=== PATIENT | male | born 1955 | race American Indian/Alaskan Native ===

== ENCOUNTER 2017-11-03 21:14 | Inpatient (IN) | payer OTHER ==
[2017-11-03 22:32] LABS: Basophils # (Auto) 0.1 K/mm3 (0.0-0.1); Basophils % (Auto) 1.4 % (0.0-1.8); Eosinophils # (Auto) 0.2 K/mm3 (0.0-0.4); Eosinophils % (Auto) 2.5 % (0.0-4.3); Hematocrit 41.8 % (35.5-45.6); Hemoglobin 14.1 gm/dl (11.8-15.2); Lymphocytes # (Auto) 3.9 K/mm3 (1.2-5.4); Lymphocytes % (Auto) 44.5 % (13.4-35.0); Mean Corpuscular HGB Conc 34 % (32-34); Mean Corpuscular Hemoglobin 31 pg (28-32); Mean Corpuscular Volume 92 fl (84-94); Monocytes # (Auto) 0.5 K/mm3 (0.0-0.8); Monocytes % (Auto) 5.4 % (0.0-7.3); Platelet Count 231 K/mm3 (140-440); Red Blood Count 4.53 M/mm3 (3.65-5.03); Red Cell Distribution Width 13.5 % (13.2-15.2)
[2017-11-03 22:39] LABS: INR 0.89 (0.87-1.13)
[2017-11-03 22:40] LABS: Partial Thromboplastin Time 29.2 Sec. (24.2-36.6)
[2017-11-03 22:56] LABS: Alanine Aminotransferase 10 units/L (7-56); Albumin 4.3 g/dL (3.9-5); BUN/Creatinine Ratio 14; Blood Urea Nitrogen 19 mg/dL (9-20); Calcium 9.6 mg/dL (8.4-10.2); Hemolysis Index 8
--- NOTE | 2017-11-03 23:42 | Emergency Department Report ---
HPI - General Chief Complaint: Extremity Problem,Nontraumatic Time Seen by Provider: 11/03/17 23:26 - HPI HPI: Room 6 The patient is a 62-year-old male presenting with a chief complaint of right lower extremity pain. The patient states she has a history of peripheral vascular disease and has had worsening pain in his right foot with weightbearing since January 2017. The patient states this pain is worsening since its onset and they spoke with the vascular surgeon (Dr. Busby) today and he instructed them to come to the emergency department to be admitted in preparation for surgery tomorrow. The patient gets his pain a score of 7/10. Location: Right foot Duration: Constantly worsening since January 2017 Quality: Pain Severity: 7/10 Modifying factors: [see above] Context: [see above] Mode of transportation: [not driving] ED Past Medical Hx - Past Medical History Previous Medical History?: Yes Hx Hypertension: Yes Hx CVA: Yes (01/2017) Additional medical history: Peripheral vascular disease - Surgical History Past Surgical History?: No Hx Cholecystectomy: Yes - Family History Family history: no significant - Social History Smoking Status: Current Every Day Smoker (1/2 pack per day) Substance Use Type: None (denies illicit drug use) ED Review of Systems ROS: Stated complaint: PAIN IN FOOT Other details as noted in HPI Constitutional: weakness Musculoskeletal: myalgia Physical Exam - Physical Exam Vital Signs: Vital Signs 11/03/17 21:32 Temperature 98.5 F Pulse Rate 73 Respiratory 16 Rate Blood Pressure 187/114 O2 Sat by Pulse 100 Oximetry Physical Exam: GENERAL: The patient is well-developed well-nourished male lying on stretcher not appearing to be in acute distress. [] HEENT: Normocephalic. Atraumatic. Extraocular motions are intact. Patient has moist mucous membranes. NECK: Supple. Trachea midline CHEST/LUNGS: There is no respiratory distress noted. HEART/CARDIOVASCULAR: Regular. There is no tachycardia. Faint dopplerable right DP ABDOMEN:There is no abdominal distention. SKIN: There is no rash. There is no diaphoresis. NEURO: The patient is awake, alert, and oriented. The patient is cooperative. The patient has normal speech MUSCULOSKELETAL: There is no evidence of acute injury. ED Course Vital Signs 11/03/17 21:32 Temperature 98.5 F Pulse Rate 73 Respiratory 16 Rate Blood Pressure 187/114 O2 Sat by Pulse 100 Oximetry - Consultations Consultation #1: 11/03/17 23:41 Vascular surgery paged 11/03/17 23:[address] Dobbins- may have hospitalist admit the patient. No need for heparin drip at this time. Will evaluate ED Medical Decision Making - Lab Data Result diagrams: 11/03/17 22:13 11/03/17 22:13 Laboratory Tests 11/03/17 11/03/17 11/03/17 22:13 22:13 22:13 WBC 8.9 RBC 4.53 Hgb 14.1 Hct 41.8 MCV 92 MCH 31 MCHC 34 RDW 13.5 Plt Count 231 Lymph % (Auto) 44.5 H [place] % (Auto) 5.4 Eos % (Auto) 2.5 Baso % (Auto) 1.4 Lymph # 3.9 [place] # 0.5 Eos # 0.2 Baso # 0.1 Seg Neutrophils % 46.2 Seg Neutrophils # 4.1 PT 12.5 INR 0.89 APTT 29.2 Sodium 136 L Potassium 4.3 Chloride 97.4 L Carbon Dioxide 29 Anion Gap 14 BUN 19 Creatinine 1.4 Estimated GFR > 60 BUN/Creatinine Ratio 14 Glucose 99 Calcium 9.6 Total Bilirubin 0.30 AST 14 ALT 10 Alkaline Phosphatase 76 NT-Pro-B Natriuret Pep 228.8 Total Protein 7.1 Albumin 4.3 Albumin/Globulin Ratio 1.5 - Differential Diagnosis peripheral vascular disease Critical care attestation.: If time is entered above; I have spent that time in minutes in the direct care of this critically ill patient, excluding procedure time. ED Disposition Clinical Impression: Right foot pain, Peripheral vascular disease Disposition: OP ADMIT IP TO THIS HOSP Is pt being admited?: Yes Does the pt Need Aspirin: Yes Condition: Fair Referrals: PRIMARY CARE, [Primary Care Provider] - 3-5 Days Time of Disposition: 23:58 (hospitalist notified (Dr. Farideh Holguin))
--- NOTE | 2017-11-03 23:58 | History and Physical Report ---
History of Present Illness Date of examination: 11/03/17 History of present illness: 62-year-old male with history of hypertension, CVA, peripheral vascular disease has ongoing right foot pain over the last 8 months. He described the pain as sharp, intermittent, less than 5 minutes, intensity score 10, no radiation, worse with activity, better with rest. He was seen by Dr. Busby who told him to come to the emergency room for admission for surgery in the morning Review of systems Constitutional: no weight loss, chills Ears, eyes, nose, mouth and throat: no nasal congestion, no nasal discharge, no sinus pressure, no vision change, no red eye. Neck: No neck pain or rigidity. Cardiovascular: no chest pain, palpitations Respiratory: No cough, shortness of breath Gastrointestinal: no abdominal pain, hematochezia Genitourinary : no dysuria, frequency , no hematuria Musculoskeletal: no joint swelling or muscle ache Integumentary: no rash, no pruritis Neurological: no parathesias, no numbness, no focal weakness Endocrine: no cold or heat intolerance, no polyuria or polydipsia Hematologic/Lymphatic: no easy bruising, no easy bleeding, no gland swelling Allergic/Immunologic: no urticaria, no angioedema. PAST MEDICAL HISTORY:hypertension, CVA, peripheral vascular disease PAST SURGICAL HISTORY: Cholecystectomy SOCIAL HISTORY: Smoke 8 cigarette/day, no alcohol or drugs FAMILY HISTORY:Hypertension Medications and Allergies Allergies Allergy/AdvReac Type Severity Reaction Status Date / Time No Known Allergies Allergy Unverified 01/25/16 09:21 Exam - Physical Exam Narrative exam: Gen. appearance: Patient lying in bed, no apparent distress HEENT: Normocephalic, atraumatic, pupils equally round and reactive to light, extraocular movement intact, and no sclericterus,. No JVD or thyromegaly or nodule,neck supple, no carotid bruit ,mucous membranes moist, no exudate or erythema Heart: S1, S2, regular rate and rhythm Lungs: Clear to auscultation bilaterally, breathing comfortable Abdomen: Positive bowel sounds, nontender, nondistended, no organomegaly Extremity: right foot is cooler than left, +doppler pulses, No edema, cyanosis, clubbing Skin: No rash, nodules, warm, dry Neuro: Oriented 3, cranial nerves II-12 intact, speech is fluent, motor and sensory intact - Constitutional Vitals: Temp Pulse Resp BP Pulse Ox 98.5 F 73 16 187/114 100 11/03/17 21:32 11/03/17 21:32 11/03/17 21:32 11/03/17 21:32 11/03/17 21:32 Results - Labs CBC & Chem 7: 11/03/17 22:13 11/03/17 22:13 Labs: Abnormal lab results 11/03/17 11/03/17 Range/Units 22:13 22:13 Lymph % (Auto) 44.5 H (13.4-35.0) % Sodium 136 L (137-145) mmol/L Chloride 97.4 L (98-107) mmol/L Assessment and Plan Assessment Peripheral vascular disease Hypertension History of CVA Plan Admit to medicine NPO, IV fluids, surgery in the morning Vascular consulted to see the patient IV hydralazine for blood pressure control DVT prophylaxis, IV morphine
[2017-11-04] MEDS ORDERED: TYLENOL #3 PO ONE (00:01)
[2017-11-04] MEDS ORDERED: ZOFRAN IV PRN (00:15)
[2017-11-04] MEDS ORDERED: SODIUM CHLORIDE FLUSH SYRINGE 10 ML IV PRN (00:15)
[2017-11-04] MEDS: APRESOLINE IV PRN ×2 (00:38→06:52)
[2017-11-04] MEDS: HABITROL TD SCH ×2 (00:39→10:40)
[2017-11-04] MEDS: NACL 0.45% 1000 ML 1,000 ML IV SCH (03:23)
[2017-11-04] MEDS: MORPHINE IV PRN (03:33)
[2017-11-04 06:00] LABS: Basophils # (Auto) 0.1 K/mm3 (0.0-0.1); Basophils % (Auto) 1.3 % (0.0-1.8); Eosinophils # (Auto) 0.2 K/mm3 (0.0-0.4); Eosinophils % (Auto) 2.6 % (0.0-4.3); Hematocrit 39.2 % (35.5-45.6); Hemoglobin 13.9 gm/dl (11.8-15.2); Lymphocytes # (Auto) 4.5 K/mm3 (1.2-5.4); Lymphocytes % (Auto) 48.4 % (13.4-35.0); Mean Corpuscular HGB Conc 36 % (32-34); Mean Corpuscular Hemoglobin 32 pg (28-32); Mean Corpuscular Volume 90 fl (84-94); Monocytes # (Auto) 0.5 K/mm3 (0.0-0.8); Monocytes % (Auto) 5.1 % (0.0-7.3); Platelet Count 201 K/mm3 (140-440); Red Blood Count 4.35 M/mm3 (3.65-5.03); Red Cell Distribution Width 13.4 % (13.2-15.2)
[2017-11-04 06:14] LABS: BUN/Creatinine Ratio 18; Blood Urea Nitrogen 20 mg/dL (9-20); Calcium 9.3 mg/dL (8.4-10.2); Hemolysis Index 1
--- NOTE | 2017-11-04 09:09 | Progress Note ---
Assessment and Plan Assessment and plan: 62-year-old male with history of hypertension, CVA, peripheral vascular disease has ongoing right foot pain over the last 8 months. He described the pain as sharp, intermittent, less than 5 minutes, intensity score 10, no radiation, worse with activity, better with rest. He was seen by Dr. Busby who told him to come to the emergency room for admission for surgery Peripheral vascular disease Vascular following -Doppler duplex ordered, based on the findings Dr. Busby will determine what the next step and interventional will be which may include arteriogram with revascularization Hypertension Continue at-home antihypertensives,IV hydralazine PRN History of CVA Continue statin therapy DVT prophylaxis Lovenox History Interval history: patient seen and examined. Continues to complain of right foot pain. He also complains of headache, which started this morning 4-5 out of 10 and is currently subsiding. He denies chest pain, nausea vomiting, shortness of breath. Labs, chart notes and nursing notes reviewed. Hospitalist Physical - Physical exam Narrative exam: General appearance: Present: no acute distress, well-nourished - EENT Eyes: Present: PERRL, EOM intact ENT: hearing intact, clear oral mucosa - Neck Present: supple, normal ROM - Respiratory Respiratory effort: normal Respiratory: bilateral: CTA - Cardiovascular Rhythm: regular Heart Sounds: Present: S1 & S2. Absent: Rub, click - Extremities Extremities: right foot is cooler than left-very tender to palpation, +doppler pulses, No edema - Abdominal General gastrointestinal: soft, non-tender, non-distended, normal bowel sounds - Integumentary Integumentary: Present: clear, warm, dry - Psychiatric Psychiatric: appropriate mood/affect, intact judgment & insight, cooperative - Neurologic Neurologic: CNII-XII intact, moves all extremities - Constitutional Vitals: Temp Pulse Resp BP Pulse Ox 99.0 F 91 H 18 180/103 99 11/04/17 01:36 11/04/17 06:52 11/04/17 01:36 11/04/17 06:52 11/04/17 01:36 Results - Labs CBC & Chem 7: 11/04/17 05:32 11/04/17 05:32 Labs: Laboratory Last Values WBC 9.3 K/mm3 (4.5-11.0) 11/04/17 05:32 RBC 4.35 M/mm3 (3.65-5.03) 11/04/17 05:32 Hgb 13.9 gm/dl (11.8-15.2) 11/04/17 05:32 Hct 39.2 % (35.5-45.6) 11/04/17 05:32 MCV 90 fl (84-94) 11/04/17 05:32 MCH 32 pg (28-32) 11/04/17 05:32 MCHC 36 % (32-34) H 11/04/17 05:32 RDW 13.4 % (13.2-15.2) 11/04/17 05:32 Plt Count 201 K/mm3 (140-440) 11/04/17 05:32 Lymph % (Auto) 48.4 % (13.4-35.0) H 11/04/17 05:32 [place] % (Auto) 5.1 % (0.0-7.3) 11/04/17 05:32 Eos % (Auto) 2.6 % (0.0-4.3) 11/04/17 05:32 Baso % (Auto) 1.3 % (0.0-1.8) 11/04/17 05:32 Lymph # 4.5 K/mm3 (1.2-5.4) 11/04/17 05:32 [place] # 0.5 K/mm3 (0.0-0.8) 11/04/17 05:32 Eos # 0.2 K/mm3 (0.0-0.4) 11/04/17 05:32 Baso # 0.1 K/mm3 (0.0-0.1) 11/04/17 05:32 Seg Neutrophils % 42.6 % (40.0-70.0) 11/04/17 05:32 Seg Neutrophils # 4.0 K/mm3 (1.8-7.7) 11/04/17 05:32 PT 12.5 Sec. (12.2-14.9) 11/03/17 22:13 INR 0.89 (0.87-1.13) 11/03/17 22:13 APTT 29.2 Sec. (24.2-36.6) 11/03/17 22:13 Sodium 138 mmol/L (137-145) 11/04/17 05:32 Potassium 3.6 mmol/L (3.6-5.0) 11/04/17 05:32 Chloride 100.9 mmol/L (98-107) 11/04/17 05:32 Carbon Dioxide 27 mmol/L (22-30) 11/04/17 05:32 Anion Gap 14 mmol/L 11/04/17 05:32 BUN 20 mg/dL (9-20) 11/04/17 05:32 Creatinine 1.1 mg/dL (0.8-1.5) 11/04/17 05:32 Estimated GFR > 60 ml/min 11/04/17 05:32 BUN/Creatinine Ratio 18 % 11/04/17 05:32 Glucose 93 mg/dL (75-100) 11/04/17 05:32 Calcium 9.3 mg/dL (8.4-10.2) 11/04/17 05:32 Total Bilirubin 0.30 mg/dL (0.1-1.2) 11/03/17 22:13 AST 14 units/L (5-40) 11/03/17 22:13 ALT 10 units/L (7-56) 11/03/17 22:13 Alkaline Phosphatase 76 units/L (35-129) 11/03/17 22:13 NT-Pro-B Natriuret Pep 228.8 pg/mL (0-900) 11/03/17 22:13 Total Protein 7.1 g/dL (6.3-8.2) 11/03/17 22:13 Albumin 4.3 g/dL (3.9-5) 11/03/17 22:13 Albumin/Globulin Ratio 1.5 % 11/03/17 22:13
--- NOTE | 2017-11-04 09:21 | Consultation ---
History of Present Illness - Reason for Consult Consult date: 11/04/17 Right Foot Pain Requesting physician: QUYNH VARELA - History of Present Illness The patient is a 62-year-old male with a history of CVA in January 2017 and tobacco abuse who states that he began right foot pain after his stroke in 2016. He states before that he was able to ambulate without any difficulty and denied any foot pain prior to that. He also denies any history of claudication prior to that time. Since that time his foot pain has progressively worsened and over the last several months he has progressed to rest pain requiring him to hang his right leg over the bed to relieve his pain. She has presented to several emergency departments over the last couple of days and presented there yesterday for potential intervention. On evaluation this morning he complains of right foot pain that is marginally relieved with hanging his leg over the bed. He states that his pain is approximately 7 out of 10. He has no other complaints at this time. Past History Past Medical History: hypertension, hyperlipidemia, stroke Past Surgical History: cholecystectomy, Other (orthopedic operation involving his first and second toes on the right foot) Social history: , smoking (7 cigarettes per day) Family history: no significant family history Medications and Allergies Allergies Allergy/AdvReac Type Severity Reaction Status Date / Time No Known Allergies Allergy Unverified 01/25/16 09:21 Home Medications Medication Instructions Recorded Confirmed Last Taken Type Amlodipine Besylate [Norvasc] 10 mg PO DAILY 11/04/17 11/04/17 Unknown History Aspirin [Aspirin TAB] 325 mg PO QDAY 11/04/17 11/04/17 Unknown History AtorvaSTATin [Lipitor] 40 mg PO QHS 11/04/17 11/04/17 Unknown History Hydrochlorothiazide [HCTZ] 25 mg PO QDAY 11/04/17 11/04/17 Unknown History hydrALAZINE [Apresoline] 50 mg PO TID 11/04/17 11/04/17 Unknown History Active Meds: Active Medications Acetaminophen (Tylenol) 650 mg PO Q4H PRN PRN Reason: Pain MILD(1-3)/Fever >100.5/COLES Amlodipine Besylate (Norvasc) 10 mg PO DAILY JUMA Atorvastatin Calcium (Lipitor) 40 mg PO QHS JUMA Enoxaparin Sodium (Lovenox) 40 mg SUB-Q QDAY JUMA Hydralazine HCl (Apresoline) 5 mg IV Q6H PRN PRN Reason: Hypertension Last Admin: 11/04/17 06:52 Dose: 5 mg Hydralazine HCl (Apresoline) 50 mg PO TID JUMA Hydrochlorothiazide (Hctz) 25 mg PO QDAY [facility] Sodium Chloride (Nacl 0.45% 1000 Ml) 1,000 mls @ 42 mls/hr IV DIRECT JUMA Last Admin: 11/04/17 03:23 Dose: 42 mls/hr Morphine Sulfate (Morphine) 2 mg IV Q4H PRN PRN Reason: Pain, Moderate (4-6) Last Admin: 11/04/17 03:33 Dose: 2 mg Nicotine (Habitrol) 14 mg TD Q24HR JUMA Last Admin: 11/04/17 00:39 Dose: 14 mg Ondansetron HCl (Zofran) 4 mg IV Q4H PRN PRN Reason: Nausea And Vomiting Sodium Chloride (Sodium Chloride Flush Syringe 10 Ml) 10 ml IV BID JUMA Sodium Chloride (Sodium Chloride Flush Syringe 10 Ml) 10 ml IV PRN PRN PRN Reason: LINE FLUSH Review of Systems All systems: negative Exam - Constitutional Vitals: Temp Pulse Resp BP Pulse Ox 98.4 F 71 22 155/102 98 11/04/17 08:26 11/04/17 08:26 11/04/17 08:26 11/04/17 08:26 11/04/17 08:26 General appearance: Present: no acute distress - EENT ENT: hearing intact - Neck Neck: Present: supple - Respiratory Respiratory effort: normal - Cardiovascular Rhythm: regular - Extremities Extremities: pulses intact (palpable femoral and popliteal pulses bilaterally unable to palpate pedal pulses bilaterally), No edema, normal temperature Extremity abnormal: ulceration (ulceration to the plantar surface of the first toe without exposed bone or purulence) - Abdominal General gastrointestinal: Present: soft, non-tender, other (protuberant unable to palpate aortic pulse or palpable pulsatile mass) Male genitourinary: Present: deferred - Rectal Rectal Exam: deferred Results - Labs CBC & Chem 7: 11/04/17 05:32 11/04/17 05:32 Labs: Abnormal lab results 11/03/17 11/03/17 11/04/17 Range/Units 22:13 22:13 05:32 MCHC 36 H (32-34) % Lymph % (Auto) 44.5 H 48.4 H (13.4-35.0) % Sodium 136 L (137-145) mmol/L Chloride 97.4 L (98-107) mmol/L Assessment and Plan The patient is a 62-year-old male with a history of CVA and tobacco abuse who has progressively worsening right lower extremity rest pain without a previous history of claudication. He has easily palpable popliteal pulses without palpable pedal pulses. 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 I am ordering a arterial duplex to evaluate for possible pedal vessel occlusive disease secondary to embolism and [place] artery aneurysm. Depending on the findings on the duplex this will determine what the next step and intervention will be which may include an arteriogram with revascularization. I discussed this plan with the patient and his . They have expressed understanding and agreed to plan. We'll keep him nothing by mouth at this time.
[2017-11-04] MEDS: NORVASC PO SCH (10:38)
[2017-11-04] MEDS: HCTZ PO SCH (10:39)
[2017-11-04] MEDS: TYLENOL PO PRN (11:21)
[2017-11-04] MEDS: LOVENOX SUB-Q SCH (11:21)
[2017-11-04] MEDS: SODIUM CHLORIDE FLUSH SYRINGE 10 ML IV SCH ×2 (11:22→22:02)
[2017-11-04] MEDS ORDERED: NARCAN 0.4 MG/1 ML IV PRN (20:30)
[2017-11-04] MEDS: DILAUDID PCA 6MG/30ML IV SCH (21:35)
[2017-11-04] MEDS: APRESOLINE PO SCH (22:02)
[2017-11-05] MEDS: APRESOLINE PO SCH ×5 (08:00→22:19)
[2017-11-05 08:08] LABS: Partial Thromboplastin Time 32.4 Sec. (24.2-36.6)
[2017-11-05] MEDS: LOVENOX SUB-Q SCH (10:16)
[2017-11-05] MEDS: HABITROL TD SCH (10:16)
[2017-11-05] MEDS: PLAVIX PO SCH (10:17)
[2017-11-05] MEDS: BABY ASPIRIN PO SCH (10:18)
[2017-11-05] MEDS: HCTZ PO SCH (10:18)
[2017-11-05] MEDS: NORVASC PO SCH (10:18)
[2017-11-05] MEDS: SODIUM CHLORIDE FLUSH SYRINGE 10 ML IV SCH ×2 (10:20→22:20)
[2017-11-05] MEDS: APRESOLINE IV PRN (12:26)
--- NOTE | 2017-11-05 14:10 | Progress Note ---
Assessment and Plan Assessment and plan: 62-year-old male with history of hypertension, CVA, peripheral vascular disease has ongoing right foot pain over the last 8 months. He described the pain as sharp, intermittent, less than 5 minutes, intensity score 10, no radiation, worse with activity, better with rest. He was seen by Dr. Busby who told him to come to the emergency room for admission for surgery Peripheral vascular disease Vascular following -Doppler duplex ordered, based on the findings Dr. Busby will determine what the next step and interventional will be which may include arteriogram with revascularization Hypertension Continue at-home antihypertensives,IV hydralazine PRN History of CVA Continue statin therapy DVT prophylaxis Lovenox History Interval history: Patient was seen and evaluated this morning, patient denied headache, Patient asked to eat. Hospitalist Physical - Physical exam Narrative exam: Not in cardiopulmonary distress. The patient appeared well nourished and normally developed. Vital signs as documented. Head exam is unremarkable. No scleral icterus . Neck is without jugular venous distension, thyromegaly, or carotid bruits. Lungs are clear to auscultation. Cardiac exam reveals regular rate and Rhythm. Abdominal exam reveals normal bowel sounds. Extremities are nonedematous. RECEPTIONIST CLERK: Alert and oriented 3. No focal weakness. - Constitutional Vitals: Temp Pulse Resp BP Pulse Ox 98.4 F 68 20 199/98 97 11/05/17 12:15 11/05/17 12:26 11/05/17 12:15 11/05/17 12:26 11/05/17 12:15 General appearance: Present: no acute distress Results - Labs CBC & Chem 7: 11/04/17 05:32 11/04/17 05:32 Labs: Laboratory Last Values WBC 9.3 K/mm3 (4.5-11.0) 11/04/17 05:32 RBC 4.35 M/mm3 (3.65-5.03) 11/04/17 05:32 Hgb 13.9 gm/dl (11.8-15.2) 11/04/17 05:32 Hct 39.2 % (35.5-45.6) 11/04/17 05:32 MCV 90 fl (84-94) 11/04/17 05:32 MCH 32 pg (28-32) 11/04/17 05:32 MCHC 36 % (32-34) H 11/04/17 05:32 RDW 13.4 % (13.2-15.2) 11/04/17 05:32 Plt Count 201 K/mm3 (140-440) 11/04/17 05:32 Lymph % (Auto) 48.4 % (13.4-35.0) H 11/04/17 05:32 [place] % (Auto) 5.1 % (0.0-7.3) 11/04/17 05:32 Eos % (Auto) 2.6 % (0.0-4.3) 11/04/17 05:32 Baso % (Auto) 1.3 % (0.0-1.8) 11/04/17 05:32 Lymph # 4.5 K/mm3 (1.2-5.4) 11/04/17 05:32 [place] # 0.5 K/mm3 (0.0-0.8) 11/04/17 05:32 Eos # 0.2 K/mm3 (0.0-0.4) 11/04/17 05:32 Baso # 0.1 K/mm3 (0.0-0.1) 11/04/17 05:32 Seg Neutrophils % 42.6 % (40.0-70.0) 11/04/17 05:32 Seg Neutrophils # 4.0 K/mm3 (1.8-7.7) 11/04/17 05:32 PT 13.7 Sec. (12.2-14.9) 11/05/17 06:18 INR 1.00 (0.87-1.13) 11/05/17 06:18 APTT 32.4 Sec. (24.2-36.6) 11/05/17 06:18 Sodium 138 mmol/L (137-145) 11/04/17 05:32 Potassium 3.6 mmol/L (3.6-5.0) 11/04/17 05:32 Chloride 100.9 mmol/L (98-107) 11/04/17 05:32 Carbon Dioxide 27 mmol/L (22-30) 11/04/17 05:32 Anion Gap 14 mmol/L 11/04/17 05:32 BUN 20 mg/dL (9-20) 11/04/17 05:32 Creatinine 1.1 mg/dL (0.8-1.5) 11/04/17 05:32 Estimated GFR > 60 ml/min 11/04/17 05:32 BUN/Creatinine Ratio 18 % 11/04/17 05:32 Glucose 93 mg/dL (75-100) 11/04/17 05:32 Calcium 9.3 mg/dL (8.4-10.2) 11/04/17 05:32 Total Bilirubin 0.30 mg/dL (0.1-1.2) 11/03/17 22:13 AST 14 units/L (5-40) 11/03/17 22:13 ALT 10 units/L (7-56) 11/03/17 22:13 Alkaline Phosphatase 76 units/L (35-129) 11/03/17 22:13 NT-Pro-B Natriuret Pep 228.8 pg/mL (0-900) 11/03/17 22:13 Total Protein 7.1 g/dL (6.3-8.2) 11/03/17 22:13 Albumin 4.3 g/dL (3.9-5) 11/03/17 22:13 Albumin/Globulin Ratio 1.5 % 11/03/17 22:13
--- NOTE | 2017-11-05 14:34 | Progress Note ---
Assessment and Plan 62-year-old male with multiple issues including right-sided stroke with paresis , bunions of his toes, and right lower extremity neuropathy who presents with worsening right lower extremity pain over the last year after his right sided stroke, but 2 weeks ago developed severe pain that was only relieved by hanging his foot off the bed. Multifactorial causes of pain including orthopedic causes (severe bunion deformity), and neuropathy of the right lower extremity after his stroke, and peripheral vascular disease. Given the pain relief with pain in the foot off the bed, this suggests his more severe pain may be secondary to arterial disease. Recommend endovascular intervention of the right lower extremity for both diagnostic and therapeutic purposes. Set patient up for Tuesday. Subjective Date of service: 11/05/17 Principal diagnosis: Rest pain RLE Interval history: Patient describes rest pain of the right lower extremity for 2 weeks with pain relief when pain the foot off the bed. Also has neuropathy and orthopedic pain. Objective - Constitutional Vitals: Vital Signs - 12hr 11/05/17 11/05/17 11/05/17 03:35 05:35 08:03 Temperature 98.7 F Pulse Rate 58 L Respiratory 20 24 22 Rate Blood Pressure 174/96 O2 Sat by Pulse 89 Oximetry 11/05/17 11/05/17 11/05/17 08:04 10:18 12:14 Temperature 98.7 F 98.4 F Pulse Rate 59 L 64 70 Respiratory 22 20 Rate Blood Pressure 168/80 190/99 O2 Sat by Pulse 96 97 Oximetry 11/05/17 11/05/17 12:15 12:26 Temperature 98.4 F Pulse Rate 68 68 Respiratory 20 Rate Blood Pressure 199/98 O2 Sat by Pulse 97 Oximetry General appearance: Present: mild distress (right lower extremity pain) - EENT Eyes: EOM intact ENT: hearing intact - Respiratory Respiratory effort: normal Extremities: normal temperature, normal color Extremity abnormal: pulses diminished (nonpalpable pedal pulses) - Gastrointestinal General gastrointestinal: Present: soft - Psychiatric Psychiatric: appropriate mood/affect, cooperative - Labs CBC & Chem 7: 11/04/17 05:32 11/04/17 05:32
[2017-11-05] MEDS: NACL 0.45% 1000 ML 1,000 ML IV SCH (20:40)
[2017-11-06] MEDS: APRESOLINE PO SCH ×2 (08:40→13:46)
[2017-11-06] MEDS: BABY ASPIRIN PO SCH (10:36)
[2017-11-06] MEDS: HABITROL TD SCH (10:36)
[2017-11-06] MEDS: NORVASC PO SCH (10:36)
[2017-11-06] MEDS: PLAVIX PO SCH (10:36)
[2017-11-06] MEDS: LOVENOX SUB-Q SCH (10:36)
[2017-11-06] MEDS: HCTZ PO SCH (10:37)
[2017-11-06] MEDS: SODIUM CHLORIDE FLUSH SYRINGE 10 ML IV SCH (10:37)
--- NOTE | 2017-11-06 11:01 | Progress Note ---
Assessment and Plan Assessment and plan: 62-year-old male with history of hypertension, CVA, peripheral vascular disease has ongoing right foot pain over the last 8 months. He described the pain as sharp, intermittent, less than 5 minutes, intensity score 10, no radiation, worse with activity, better with rest. He was seen by Dr. Busby who told him to come to the emergency room for admission for surgery Peripheral vascular disease - BLE ARTERIAL DUPLEX/ LUKE'S COMPLETED. VAS LAB PRELIMINARY REPORT; RESTING LUKE' S: RT= 0.65, LT= 0.65. - Will have vascular intervention tomorrow Hypertension - continue home BP medications History of CVA - Continue statin therapy DVT prophylaxis - Lovenox History Interval history: Patient was seen and evaluated this morning, patient denied headache, still complains pain on the right foot worse on the 2nd toes. Hospitalist Physical - Physical exam Narrative exam: Not in cardiopulmonary distress. The patient appeared well nourished and normally developed. Vital signs as documented. Head exam is unremarkable. No scleral icterus . Neck is without jugular venous distension, thyromegaly, or carotid bruits. Lungs are clear to auscultation. Cardiac exam reveals regular rate and Rhythm. Abdominal exam reveals normal bowel sounds. Extremities are nonedematous, tenderness on the right foot, worse on the second toes. 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 - Constitutional Vitals: Temp Pulse Resp BP Pulse Ox 98.5 F 68 20 160/90 99 11/06/17 08:05 11/06/17 10:36 11/06/17 08:05 11/06/17 10:36 11/06/17 08:05 General appearance: Present: mild distress (right lower extremity pain) Results - Labs CBC & Chem 7: 11/04/17 05:32 11/04/17 05:32 Labs: Laboratory Last Values WBC 9.3 K/mm3 (4.5-11.0) 11/04/17 05:32 RBC 4.35 M/mm3 (3.65-5.03) 11/04/17 05:32 Hgb 13.9 gm/dl (11.8-15.2) 11/04/17 05:32 Hct 39.2 % (35.5-45.6) 11/04/17 05:32 MCV 90 fl (84-94) 11/04/17 05:32 MCH 32 pg (28-32) 11/04/17 05:32 MCHC 36 % (32-34) H 11/04/17 05:32 RDW 13.4 % (13.2-15.2) 11/04/17 05:32 Plt Count 201 K/mm3 (140-440) 11/04/17 05:32 Lymph % (Auto) 48.4 % (13.4-35.0) H 11/04/17 05:32 [place] % (Auto) 5.1 % (0.0-7.3) 11/04/17 05:32 Eos % (Auto) 2.6 % (0.0-4.3) 11/04/17 05:32 Baso % (Auto) 1.3 % (0.0-1.8) 11/04/17 05:32 Lymph # 4.5 K/mm3 (1.2-5.4) 11/04/17 05:32 [place] # 0.5 K/mm3 (0.0-0.8) 11/04/17 05:32 Eos # 0.2 K/mm3 (0.0-0.4) 11/04/17 05:32 Baso # 0.1 K/mm3 (0.0-0.1) 11/04/17 05:32 Seg Neutrophils % 42.6 % (40.0-70.0) 11/04/17 05:32 Seg Neutrophils # 4.0 K/mm3 (1.8-7.7) 11/04/17 05:32 PT 13.7 Sec. (12.2-14.9) 11/05/17 06:18 INR 1.00 (0.87-1.13) 11/05/17 06:18 APTT 32.4 Sec. (24.2-36.6) 11/05/17 06:18 Sodium 138 mmol/L (137-145) 11/04/17 05:32 Potassium 3.6 mmol/L (3.6-5.0) 11/04/17 05:32 Chloride 100.9 mmol/L (98-107) 11/04/17 05:32 Carbon Dioxide 27 mmol/L (22-30) 11/04/17 05:32 Anion Gap 14 mmol/L 11/04/17 05:32 BUN 20 mg/dL (9-20) 11/04/17 05:32 Creatinine 1.1 mg/dL (0.8-1.5) 11/04/17 05:32 Estimated GFR > 60 ml/min 11/04/17 05:32 BUN/Creatinine Ratio 18 % 11/04/17 05:32 Glucose 93 mg/dL (75-100) 11/04/17 05:32 Calcium 9.3 mg/dL (8.4-10.2) 11/04/17 05:32 Total Bilirubin 0.30 mg/dL (0.1-1.2) 11/03/17 22:13 AST 14 units/L (5-40) 11/03/17 22:13 ALT 10 units/L (7-56) 11/03/17 22:13 Alkaline Phosphatase 76 units/L (35-129) 11/03/17 22:13 NT-Pro-B Natriuret Pep 228.8 pg/mL (0-900) 11/03/17 22:13 Total Protein 7.1 g/dL (6.3-8.2) 11/03/17 22:13 Albumin 4.3 g/dL (3.9-5) 11/03/17 22:13 Albumin/Globulin Ratio 1.5 % 11/03/17 22:13
[2017-11-06] MEDS ORDERED: BENADRYL PO PRN (13:16)
[2017-11-06] MEDS: DILAUDID PCA 6MG/30ML IV SCH (13:25)
[2017-11-07] MEDS: APRESOLINE PO SCH ×3 (01:11→18:01)
[2017-11-07 07:23] LABS: BUN/Creatinine Ratio 15; Blood Urea Nitrogen 20 mg/dL (9-20); Calcium 9.1 mg/dL (8.4-10.2); Hemolysis Index 1
[2017-11-07] MEDS: SODIUM CHLORIDE FLUSH SYRINGE 10 ML IV SCH (10:22)
[2017-11-07] MEDS: HABITROL TD SCH (10:25)
[2017-11-07] MEDS ORDERED: HEPARIN/NS 5000 UNIT/500ML(CATH LAB) 1,000 ML IR ONE (13:53)
[2017-11-07] MEDS ORDERED: ANCEF/STERILE WATER 2 GM/20 ML 2 GM/20 ML SYRINGE IV ONE (13:54)
--- NOTE | 2017-11-07 14:25 | Cat Scan Report ---
FINAL REPORT EXAM: CT ANGIO ABD/FEMORAL ABD AORTA HISTORY: PVD with rest pain TECHNIQUE: CT angiogram with intravenous contrast abdomen through lower extremities. Multiplanar and 3D maximum intensity projection reconstructions were obtained PRIORS: None. FINDINGS: There is minimal calcified atherosclerotic abdominal aorta. No evidence for significant stenosis. Celiac and SMA are patent. The renal arteries are normal in caliber. Common iliac arteries demonstrate minimal plaque without evidence for significant stenosis. Common iliac arteries are patent bilaterally no significant stenosis. Is the common femoral and deep femoral arteries are unremarkable. There is bilateral luminal narrowing distal superficial femoral arteries with short segment of stenosis on the right estimated 60 70 percent and approximately 50 percent stenosis on the left. Popliteal arteries demonstrate normal caliber. The proximal arteries of the calf are patent there is some runoff seen distally however visualization of detail the arteries of the calf in feet is limited. No acute findings seen within the abdomen or pelvis IMPRESSION: Minimal plaque formation with otherwise normal appearance from the abdominal aorta through the distal superficial femoral arteries. There is some narrowing of the superficial femoral arteries distally bilaterally. Limited visualization below the knee no gross abnormality identified
[2017-11-07] MEDS ORDERED: NACL 0.9% 500 ML 500 ML ONE (14:26)
[2017-11-07] MEDS: VERSED ONE ×3 (14:51→15:34)
[2017-11-07] MEDS: SUBLIMAZE ONE ×7 (14:51→16:24)
[2017-11-07] MEDS: XYLOCAINE 2% INFILTRATI ONE ×2 (14:51→14:59)
[2017-11-07] MEDS ORDERED: CATHFLO ONE (15:06)
[2017-11-07] MEDS: APRESOLINE ONE ×2 (15:12→15:23)
--- NOTE | 2017-11-07 15:12 | Progress Note ---
Assessment and Plan Assessment and plan: 62-year-old male with history of hypertension, CVA, peripheral vascular disease has ongoing right foot pain over the last 8 months. He described the pain as sharp, intermittent, less than 5 minutes, intensity score 10, no radiation, worse with activity, better with rest. He was seen by Dr. Busby who told him to come to the emergency room for admission for surgery Peripheral vascular disease - BLE ARTERIAL DUPLEX/ LUKE'S COMPLETED. VAS LAB PRELIMINARY REPORT; RESTING LUKE' S: RT= 0.65, LT= 0.65. - Will have vascular intervention tomorrow Hypertension - continue home BP medications History of CVA - Continue statin therapy DVT prophylaxis - Lovenox History Interval history: Patient was seen and evaluated this morning, patient denied headache, still complains pain on the right foot worse on the 2nd toes. Hospitalist Physical - Physical exam Narrative exam: Not in cardiopulmonary distress. The patient appeared well nourished and normally developed. Vital signs as documented. Head exam is unremarkable. No scleral icterus . Neck is without jugular venous distension, thyromegaly, or carotid bruits. Lungs are clear to auscultation. Cardiac exam reveals regular rate and Rhythm. Abdominal exam reveals normal bowel sounds. Extremities are nonedematous, tenderness on the right foot, worse on the second toes. 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 - Constitutional Vitals: Temp Pulse Resp BP Pulse Ox 98.4 F 74 19 159/104 96 11/07/17 07:46 11/07/17 10:22 11/07/17 12:00 11/07/17 10:22 11/07/17 07:46 General appearance: Present: mild distress (right lower extremity pain) Results - Labs CBC & Chem 7: 11/04/17 05:32 11/07/17 06:25 Labs: Laboratory Last Values WBC 9.3 K/mm3 (4.5-11.0) 11/04/17 05:32 RBC 4.35 M/mm3 (3.65-5.03) 11/04/17 05:32 Hgb 13.9 gm/dl (11.8-15.2) 11/04/17 05:32 Hct 39.2 % (35.5-45.6) 11/04/17 05:32 MCV 90 fl (84-94) 11/04/17 05:32 MCH 32 pg (28-32) 11/04/17 05:32 MCHC 36 % (32-34) H 11/04/17 05:32 RDW 13.4 % (13.2-15.2) 11/04/17 05:32 Plt Count 201 K/mm3 (140-440) 11/04/17 05:32 Lymph % (Auto) 48.4 % (13.4-35.0) H 11/04/17 05:32 [place] % (Auto) 5.1 % (0.0-7.3) 11/04/17 05:32 Eos % (Auto) 2.6 % (0.0-4.3) 11/04/17 05:32 Baso % (Auto) 1.3 % (0.0-1.8) 11/04/17 05:32 Lymph # 4.5 K/mm3 (1.2-5.4) 11/04/17 05:32 [place] # 0.5 K/mm3 (0.0-0.8) 11/04/17 05:32 Eos # 0.2 K/mm3 (0.0-0.4) 11/04/17 05:32 Baso # 0.1 K/mm3 (0.0-0.1) 11/04/17 05:32 Seg Neutrophils % 42.6 % (40.0-70.0) 11/04/17 05:32 Seg Neutrophils # 4.0 K/mm3 (1.8-7.7) 11/04/17 05:32 PT 13.7 Sec. (12.2-14.9) 11/05/17 06:18 INR 1.00 (0.87-1.13) 11/05/17 06:18 APTT 32.4 Sec. (24.2-36.6) 11/05/17 06:18 Sodium 137 mmol/L (137-145) 11/07/17 06:25 Potassium 3.9 mmol/L (3.6-5.0) 11/07/17 06:25 Chloride 96.6 mmol/L (98-107) L 11/07/17 06:25 Carbon Dioxide 28 mmol/L (22-30) 11/07/17 06:25 Anion Gap 16 mmol/L 11/07/17 06:25 BUN 20 mg/dL (9-20) 11/07/17 06:25 Creatinine 1.3 mg/dL (0.8-1.5) 11/07/17 06:25 Estimated GFR > 60 ml/min 11/07/17 06:25 BUN/Creatinine Ratio 15 % 11/07/17 06:25 Glucose 93 mg/dL (75-100) 11/07/17 06:25 Calcium 9.1 mg/dL (8.4-10.2) 11/07/17 06:25 Total Bilirubin 0.30 mg/dL (0.1-1.2) 11/03/17 22:13 AST 14 units/L (5-40) 11/03/17 22:13 ALT 10 units/L (7-56) 11/03/17 22:13 Alkaline Phosphatase 76 units/L (35-129) 11/03/17 22:13 NT-Pro-B Natriuret Pep 228.8 pg/mL (0-900) 11/03/17 22:13 Total Protein 7.1 g/dL (6.3-8.2) 11/03/17 22:13 Albumin 4.3 g/dL (3.9-5) 11/03/17 22:13 Albumin/Globulin Ratio 1.5 % 11/03/17 22:13
[2017-11-07] MEDS: HEPARIN 10,000 UNITS/10 ML ONE ×2 (15:20→16:01)
[2017-11-07] MEDS ORDERED: VERSED ONE (15:32)
--- NOTE | 2017-11-07 16:44 | Post Operative Note ---
Date of procedure: 11/07/17 Pre-op diagnosis: PVD with Right Lower Extremity Rest Pain Post-op diagnosis: same Procedure: 1. Ultrasound Guided Access Left Common Femoral Artery 2. Diagnostic Aortogram with Right Lower Extremity Runoff (No Previous Films for Comparison) 3. Angioplasty of Right Posterior Tibial Artery with 3.0 x 220 Gabriel Balloon 4. Angioplasty of Right Anterior Tibial Artery with 3.0 x 220 Gabriel Balloon 5. Angiolplasty of Right Below Knee Popliteal Artery with 4.0 x 80 INpact Drug- Coated Balloon 6. Angioplasty and Stent of Right SFA with 5.0 x 150 INpact Drug-Coated Balloon and 6 x 40 EverFlex Stent 7. Closure of Left Femoral Arteriotomy with 6 Uzbek Angioseal 8. Radiologic Supervision with Interpretation Anesthesia: local, other (I.V. Sedation) Surgeon: CASPER BROOKS Estimated blood loss: minimal Pathology: none Condition: stable Disposition: floor
--- NOTE | 2017-11-07 16:47 | Operative Report ---
Operative Report Operative Report: Date of Procedure: 11/07/2017 Pre-operative Diagnosis: PVD with Right Lower Extremity Rest Pain Post-operative Diagnosis: Same Procedure(s): 1. Ultrasound Guided Access Left Common Femoral Artery 2. Diagnostic Aortogram with Right Lower Extremity Runoff (No Previous Films for Comparison) 3. Angioplasty of Right Posterior Tibial Artery with 3.0 x 220 Gabriel Balloon 4. Angioplasty of Right Anterior Tibial Artery with 3.0 x 220 Gabriel Balloon 5. Angiolplasty of Right Below Knee Popliteal Artery with 4.0 x 80 INpact Drug- Coated Balloon 6. Angioplasty and Stent of Right SFA with 5.0 x 150 INpact Drug-Coated Balloon and 6 x 40 EverFlex Stent 7. Closure of Left Femoral Arteriotomy with 6 Ivorian Angioseal 8. Radiologic Supervision with Interpretation Surgeon: Oren Busby M.D. Rubber Vulcanizing Machine Operator: Tylor Anesthesia: Local and IV sedation EBL: Minimal Counts: Correct Complications: None Condition: Stable Specimen: None Indication: The patient is a 62-year-old male with a history of CVA and neuropathy who presented to the emergency department with complaints of neuropathic pain in his bilateral lower extremities for approximately a year however over the past several months he began complaining of pain in his right foot that progressed to rest pain and worsened over the past 2 weeks requiring him to hang his right leg over the bed to relieve his pain. Ultrasound and CTA of his lower extremities revealed significant SFA and tibial disease of his right lower extremity prompting an arteriogram for diagnostic purposes. He was given the risks, benefits, and alternative procedures and consented to the procedure. Angiographic Findings: The diagnostic aortogram demonstrated the aorta was widely patent without significant stenosis. Bilateral common iliacs and external iliacs were widely patent. The hypogastric arteries are widely patent. The right lower extremity arteriogram demonstrated the common femoral artery was widely patent. The right profunda artery was patent at its origin however had distal stenosis throughout multiple branches. The SFA was patent proximally however the mid SFA was diffusely diseased with multiple segmental stenosis varying from 30-70% . The distal SFA was patent. The proximal and mid popliteal artery was widely patent. The below knee popliteal artery was diffusely diseased with approximately 40-80% stenosis. There were no visible tibial vessels patent within the calf however the medial plantar artery appeared to be patent in the foot. After intervention the posterior tibial artery was patent with less than 10% residual stenosis. The anterior tibial artery was patent with approximately 40% residual stenosis at the junction of the dorsalis pedis artery however the remainder of the artery was patent. The the popliteal artery was patent with less than 15% residual stenosis. The SFA was patent with less than 15% residual stenosis. Description of Procedure: The patient was brought to the director of labor relations and laid in supine position. After he was adequately sedated his left groin was prepped and draped in normal sterile fashion. Ultrasound was used to identify the left common femoral artery and confirmed patency. After patency was confirmed the overlying skin and soft tissue was anesthetized with lidocaine. An 11 blade was then used to make a stab incision and a hemostat was used to bluntly dissect down to the anterior surface of the left common femoral artery. A micropuncture needle was used with ultrasound guidance to puncture the anterior surface of the left common femoral artery and a 0.018 wire was advanced into the artery. The needle was removed and a micropuncture sheath was advanced by Seldinger technique. The inner cannula and wire were removed and a 0.035 Bentson wire was advanced to the aorta under fluoroscopy. The micropuncture sheath was removed and exchanged for a 5 Ivorian sheath by Seldinger technique. The sheath was flushed with heparinized saline and an Omni Flush catheter was advanced into the aorta under fluoroscopy. An aortogram was performed and then the catheter was advanced up and over the bifurcation and the right lower extremity arteriograms performed with the previously described findings. The Bentson wire was advanced down into the popliteal artery and a 5 Ivorian sheath was exchanged for 6 Ivorian 90 cm destination sheath was then injected technique. At this point the patient was systemically heparinized with 5000 units of heparin IV. A 5 Ivorian Navicross catheter was then advanced down into the below-knee popliteal artery and a 0.035 Advantage wire was used with the catheter and advanced into the subintimal space of the posterior tibial artery and I was able to traverse the occlusion and reenter medial plantar artery which was confirmed by arteriogram. I exchanged the Advantage wire for a 0.018 V18 wire and then perform angioplasty of the entire artery using a 3.0 x 220 Gabriel Balloon. The follow-up arteriogram demonstrated a patent artery with less than 10% residual stenosis. I then pulled the catheter back into the popliteal artery and was able to identify a small stump of the residual anterior tibial artery. I was able to cannulate this. With the catheter and the V18 wire and then advanced the catheter and wire into the proximal anterior tibial artery. I then exchanged the wire for the Advantage wire and was able to remain in the subintimal space and advanced down into the patent dorsalis pedis artery which was confirmed by arteriogram. I exchanged the Advantage wire for the V18 wire and then perform angioplasty of the anterior tibial artery with the 3.0 x 220 Gabriel Balloon. There was an area at the junction of the dorsalis pedis artery that despite high pressures did not break however the remainder of the artery was patent with less than 15% residual stenosis. The flow was somewhat slower than the posterior tibial artery however there was in-line flow into the foot through this artery. I then perform angioplasty of the below-knee popliteal artery using a 4.0 x 80 INpact Drug-Coated Balloon with the result of less than 15% residual stenosis. I used a 5.0 x 150 INpact Drug-Coated Balloon to perform angioplasty of a long segment of stenosis within the SFA. There was a short flow-limiting dissection at the distal treatment zone which required placement of a 6 x 40 EverFlex Stent. The stent was placed and postdilated with a 5 mm balloon. The follow-up arteriogram demonstrated a widely patent stent and brisk flow of contrast through the SFA and the stent that was displaced. At this point I pulled the sheath back into the left external iliac artery and performed a left anterior oblique injection that demonstrated the sheath was well above the bifurcation. I initially attempted closure with a ProGlide closure device however this failed to close the arteriotomy so I closed the left femoral arteriotomy with a 6 Ivorian Angio-Seal. The patient tolerated the procedure well. All sponge, needle, and instrument counts were correct. The patient was taken back to his room in stable condition.
[2017-11-07] MEDS: PLAVIX PO SCH (18:01)
[2017-11-07] MEDS: NORVASC PO SCH (18:01)
[2017-11-07] MEDS: BABY ASPIRIN PO SCH (18:02)
[2017-11-07] MEDS: HCTZ PO SCH (18:02)
[2017-11-07] MEDS: LOVENOX SUB-Q SCH (18:08)
[2017-11-07] MEDS: MORPHINE IV PRN (19:11)
[2017-11-07] MEDS: DILAUDID PCA 6MG/30ML IV SCH (19:46)
[2017-11-08 08:18] LABS: BUN/Creatinine Ratio 15; Blood Urea Nitrogen 18 mg/dL (9-20); Calcium 9.5 mg/dL (8.4-10.2); Hemolysis Index 3
[2017-11-08] MEDS: APRESOLINE PO SCH ×4 (08:53→21:25)
[2017-11-08] MEDS: LOVENOX SUB-Q SCH (09:25)
[2017-11-08] MEDS: PLAVIX PO SCH (09:25)
[2017-11-08] MEDS: HABITROL TD SCH (09:26)
[2017-11-08] MEDS: NORVASC PO SCH (09:27)
[2017-11-08] MEDS: HCTZ PO SCH (10:00)
[2017-11-08] MEDS: BABY ASPIRIN PO SCH (10:00)
--- NOTE | 2017-11-08 16:11 | Progress Note ---
Assessment and Plan Assessment and plan: 62-year-old male with history of hypertension, CVA, peripheral vascular disease has ongoing right foot pain over the last 8 months. He described the pain as sharp, intermittent, less than 5 minutes, intensity score 10, no radiation, worse with activity, better with rest. He was seen by Dr. Busby who told him to come to the emergency room for admission for surgery Peripheral vascular disease - BLE ARTERIAL DUPLEX/ LUKE'S COMPLETED. VAS LAB PRELIMINARY REPORT; RESTING LUKE' S: RT= 0.65, LT= 0.65. - Dr Busby did vascular procedure and patient's pain is getting better - PT consult Hypertension - continue home BP medications History of CVA - Continue statin therapy DVT prophylaxis - Lovenox Possible DC tomorrow after PT evaluation. History Interval history: Patient was seen and evaluated this morning, patient denied headache, Pain in the right foot subsided. Hospitalist Physical - Physical exam Narrative exam: Not in cardiopulmonary distress. The patient appeared well nourished and normally developed. Vital signs as documented. Head exam is unremarkable. No scleral icterus . Neck is without jugular venous distension, thyromegaly, or carotid bruits. Lungs are clear to auscultation. Cardiac exam reveals regular rate and Rhythm. Abdominal exam reveals normal bowel sounds. Extremities are nonedematous, tenderness on the right foot, worse on the second toes. 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 - Constitutional Vitals: Temp Pulse Resp BP Pulse Ox 99.0 F 76 20 146/94 98 11/08/17 14:37 11/08/17 14:37 11/08/17 14:37 11/08/17 14:37 11/08/17 14:37 General appearance: Present: mild distress (right lower extremity pain) Results - Labs CBC & Chem 7: 11/04/17 05:32 11/08/17 07:16 Labs: Laboratory Last Values WBC 9.3 K/mm3 (4.5-11.0) 11/04/17 05:32 RBC 4.35 M/mm3 (3.65-5.03) 11/04/17 05:32 Hgb 13.9 gm/dl (11.8-15.2) 11/04/17 05:32 Hct 39.2 % (35.5-45.6) 11/04/17 05:32 MCV 90 fl (84-94) 11/04/17 05:32 MCH 32 pg (28-32) 11/04/17 05:32 MCHC 36 % (32-34) H 11/04/17 05:32 RDW 13.4 % (13.2-15.2) 11/04/17 05:32 Plt Count 201 K/mm3 (140-440) 11/04/17 05:32 Lymph % (Auto) 48.4 % (13.4-35.0) H 11/04/17 05:32 [place] % (Auto) 5.1 % (0.0-7.3) 11/04/17 05:32 Eos % (Auto) 2.6 % (0.0-4.3) 11/04/17 05:32 Baso % (Auto) 1.3 % (0.0-1.8) 11/04/17 05:32 Lymph # 4.5 K/mm3 (1.2-5.4) 11/04/17 05:32 [place] # 0.5 K/mm3 (0.0-0.8) 11/04/17 05:32 Eos # 0.2 K/mm3 (0.0-0.4) 11/04/17 05:32 Baso # 0.1 K/mm3 (0.0-0.1) 11/04/17 05:32 Seg Neutrophils % 42.6 % (40.0-70.0) 11/04/17 05:32 Seg Neutrophils # 4.0 K/mm3 (1.8-7.7) 11/04/17 05:32 PT 13.7 Sec. (12.2-14.9) 11/05/17 06:18 INR 1.00 (0.87-1.13) 11/05/17 06:18 APTT 32.4 Sec. (24.2-36.6) 11/05/17 06:18 Sodium 137 mmol/L (137-145) 11/08/17 07:16 Potassium 4.0 mmol/L (3.6-5.0) 11/08/17 07:16 Chloride 95.5 mmol/L (98-107) L 11/08/17 07:16 Carbon Dioxide 27 mmol/L (22-30) 11/08/17 07:16 Anion Gap 19 mmol/L 11/08/17 07:16 BUN 18 mg/dL (9-20) 11/08/17 07:16 Creatinine 1.2 mg/dL (0.8-1.5) 11/08/17 07:16 Estimated GFR > 60 ml/min 11/08/17 07:16 BUN/Creatinine Ratio 15 % 11/08/17 07:16 Glucose 102 mg/dL (75-100) H 11/08/17 07:16 Calcium 9.5 mg/dL (8.4-10.2) 11/08/17 07:16 Total Bilirubin 0.30 mg/dL (0.1-1.2) 11/03/17 22:13 AST 14 units/L (5-40) 11/03/17 22:13 ALT 10 units/L (7-56) 11/03/17 22:13 Alkaline Phosphatase 76 units/L (35-129) 11/03/17 22:13 NT-Pro-B Natriuret Pep 228.8 pg/mL (0-900) 11/03/17 22:13 Total Protein 7.1 g/dL (6.3-8.2) 11/03/17 22:13 Albumin 4.3 g/dL (3.9-5) 11/03/17 22:13 Albumin/Globulin Ratio 1.5 % 11/03/17 22:13
--- NOTE | 2017-11-08 17:48 | Vascular Lab Report ---
LOWER EXTREMITY ARTERIAL DUPLEX: REASON FOR EXAM: Peripheral arterial disease. COMMENTS ON THE RIGHT: Triphasic waveforms are seen proximally. Monophasic waveforms are seen distally. Evidence of tibial artery occlusive disease is identified. Scattered plaque is seen throughout. Findings are consistent with abnormal perfusion. Findings are not consistent with the ability to heal distal wounds. COMMENTS ON THE LEFT: Triphasic waveforms are seen proximally. Monophasic waveforms are seen distally. Evidence of tibial artery occlusive disease is identified. Scattered plaque is seen throughout. Findings are consistent with abnormal perfusion. Findings are not consistent with the ability to heal distal wounds. IMPRESSION: Bilateral severe tibial artery disease consistent with rest pain or inability to heal distal wounds. Recommend further evaluation.
--- NOTE | 2017-11-08 17:50 | Progress Note ---
Assessment and Plan Pt presented with RLE rest pain. S/p perc intervention with palpable pulse and improved pain. L groin with mild swelling. Will check U/s for pseudoaneurysm. Increase activity as tolerated. - Patient Problems (1) Atherosclerosis of [place] arteries of extremity with rest pain Current Visit: Yes Status: Acute Subjective Date of service: 11/08/17 Principal diagnosis: Rest pain RLE Interval history: Pt doing well post-op. RLE feels much better. Left groin mild discomfort. Objective - Constitutional Vitals: Vital Signs - 12hr 11/08/17 11/08/17 11/08/17 07:26 09:26 12:32 Temperature 98.7 F 99.1 F Pulse Rate 86 72 Respiratory 20 20 Rate Blood Pressure 151/108 151/108 162/101 O2 Sat by Pulse 99 99 Oximetry 11/08/17 14:37 Temperature 99.0 F Pulse Rate 76 Respiratory 20 Rate Blood Pressure 146/94 O2 Sat by Pulse 98 Oximetry General appearance: Present: no acute distress - EENT Eyes: EOM intact ENT: hearing intact - Respiratory Respiratory effort: normal Extremities: no ischemia, pulses intact (right PT pulse easily palpable), normal temperature, abnormal (left groin mild swelling and min tenderness.) - Neurologic Neurologic: no focal deficits - Psychiatric Psychiatric: appropriate mood/affect, intact judgment & insight, cooperative - Labs CBC & Chem 7: 11/04/17 05:32 11/08/17 07:16 Labs: Abnormal lab results 11/08/17 11/08/17 Range/Units 07:16 16:46 Chloride 95.5 L (98-107) mmol/L Glucose 102 H (75-100) mg/dL POC Glucose 110 H (70-105)
[2017-11-08] MEDS: NACL 0.45% 1000 ML 1,000 ML IV SCH (19:18)
[2017-11-08] MEDS: SODIUM CHLORIDE FLUSH SYRINGE 10 ML IV SCH (21:28)
[2017-11-08] MEDS: DILAUDID PCA 6MG/30ML IV SCH (22:07)
[2017-11-09 08:06] LABS: BUN/Creatinine Ratio 17; Blood Urea Nitrogen 20 mg/dL (9-20); Hemolysis Index 14
[2017-11-09] MEDS: LOVENOX SUB-Q SCH (10:32)
[2017-11-09] MEDS: HABITROL TD SCH (10:32)
[2017-11-09] MEDS: NORVASC PO SCH (10:33)
[2017-11-09] MEDS: APRESOLINE PO SCH ×3 (10:33→21:51)
[2017-11-09] MEDS: PLAVIX PO SCH (10:33)
[2017-11-09] MEDS: HCTZ PO SCH (10:33)
[2017-11-09] MEDS: BABY ASPIRIN PO SCH (10:36)
[2017-11-09] MEDS: SODIUM CHLORIDE FLUSH SYRINGE 10 ML IV SCH ×3 (10:37→21:51)
[2017-11-09 13:48] LABS: Hematocrit 38.2 % (35.5-45.6); Hemoglobin 13.3 gm/dl (11.8-15.2); Mean Corpuscular HGB Conc 35 % (32-34); Mean Corpuscular Hemoglobin 31 pg (28-32); Mean Corpuscular Volume 90 fl (84-94); Platelet Count 181 K/mm3 (140-440); Red Blood Count 4.23 M/mm3 (3.65-5.03); Red Cell Distribution Width 13.6 % (13.2-15.2)
--- NOTE | 2017-11-09 14:26 | Vascular Lab Report ---
LOWER EXTREMITY ARTERIAL DUPLEX: REASON FOR EXAM: Left groin swelling after angiography. COMMENTS ON THE LEFT: Triphasic waveforms are seen proximally. Monophasic waveforms are seen distally. Tibial artery occlusive disease identified. Scattered plaque is seen throughout. There is no pseudoaneurysm identified at the left inguinal area. IMPRESSION: No evidence of pseudoaneurysm formation at the left common femoral artery. There is a tibial artery occlusive disease distally.
--- NOTE | 2017-11-09 14:44 | Vascular Lab Report ---
LOWER EXTREMITY ARTERIAL PHYSIOLOGIC STUDY: REASON FOR EXAM: Peripheral arterial disease. COMMENTS ON THE RIGHT: Ankle brachial index is 0.65. This value is consistent with severe claudication. Pulse volume recording at the level of the ankle is severely abnormal. Exercise testing was not done. COMMENTS ON THE LEFT: Ankle brachial index is 0.65. This value is consistent with severe claudication. Pulse volume recording at the level of the ankle is mildly abnormal. Exercise testing was not done. IMPRESSION: RIGHT: Findings consistent with significant claudication and substantial derangement of distal flow. Recommend further evaluation. LEFT:Findings consistent with significant claudication. Reasonable flow is seen distally.
--- NOTE | 2017-11-09 15:55 | Progress Note ---
Assessment and Plan Called to ask to see pt urgently due to new onset lower abd pain. Stat CBC shows no significant change or new anemia. Vasc lab duplex negative for psuedoaneurysm or hematoma CT abd/pelvis negative for RP bleed. Abd pain does not appear vascular in origin. No additional vascular surgery intervention needed at this point. Encouraged pt to convert to oral analgesics in prep for d/c. Pt has not had a BM since admission which maybe contributing to his discomfort. - Patient Problems (1) Atherosclerosis of [place] arteries of extremity with rest pain Current Visit: Yes Status: Acute Subjective Date of service: 11/09/17 Principal diagnosis: Rest pain RLE Interval history: Pt awake. He complains of Right lower quadrant pain of the abdomen. Denies RLE pain. Objective - Constitutional Vitals: Vital Signs - 12hr 11/09/17 11/09/17 11/09/17 04:00 04:28 06:00 Temperature 99.2 F Pulse Rate 80 Respiratory 20 20 18 Rate Blood Pressure 168/83 O2 Sat by Pulse 97 Oximetry 11/09/17 11/09/17 11/09/17 07:43 10:33 15:30 Temperature 99.6 F 98.8 F Pulse Rate 82 82 71 Respiratory 20 20 Rate Blood Pressure 140/91 140/91 140/99 O2 Sat by Pulse 98 98 Oximetry General appearance: Present: no acute distress - EENT Eyes: EOM intact ENT: hearing intact - Neck Neck: supple - Respiratory Respiratory effort: normal Extremities: normal temperature - Gastrointestinal General gastrointestinal: Present: soft, tender (mildly tender to palpation) - Neurologic Neurologic: no focal deficits - Psychiatric Psychiatric: appropriate mood/affect, intact judgment & insight, cooperative - Labs CBC & Chem 7: 11/09/17 12:33 11/09/17 07:19 Labs: Abnormal lab results 11/08/17 11/09/17 11/09/17 Range/Units 16:46 07:19 12:33 MCHC 35 H (32-34) % Sodium 136 L (137-145) mmol/L Chloride 94.7 L (98-107) mmol/L Glucose 116 H (75-100) mg/dL POC Glucose 110 H (70-105)
--- NOTE | 2017-11-09 16:04 | Cat Scan Report ---
FINAL REPORT EXAM: CT ABDOMEN PELVIS WO CON HISTORY: abd pain TECHNIQUE: CT of the abdomen and pelvis without IV contrast. Coronal and sagittal reconstructed imaging provided. PRIORS: None currently available. FINDINGS: ABDOMEN: Lung bases are unremarkable. Mild cardiomegaly noted. No pericardial effusion. Kidneys: Several punctate 2-4 mm stones in both kidneys identified. No hydronephrosis. No ureteral stones. Hyperdense 5.5 mm lesion in the upper right kidney may represent a hemorrhagic cysts Liver, gallbladder, stomach, spleen, pancreas, and adrenals are unremarkable. There is no abdominal aortic aneurysm. Mild atherosclerotic disease noted. IVC is unremarkable. There is no periaortic or retroperitoneal adenopathy or mass. Bhat-be-uuyleyil stool. No wall thickening or inflammatory changes. Terminal ilium is unremarkable. Surgical clips around the pericecal region suggest prior appendectomy. Small bowel loops are unremarkable. No obstructive pattern. No free air. No free fluid. Mesentery is unremarkable. Fat-containing umbilical hernia without strangulation. Subcutaneous gas and stranding in the right lower quadrant may represent a subcutaneous injection. PELVIS: Bladder is unremarkable. There is no pelvic mass or adenopathy. Inguinal regions are unremarkable. Bones: No suspicious osseous lesions on this limited examination of the skeleton. Metastatic disease better evaluated with bone scan. Degenerative changes are in the spine. IMPRESSION: Punctate bilateral renal stones. No hydronephrosis. No ureteral stones. Possible constipation. Otherwise, no acute findings.
[2017-11-09] MEDS ORDERED: MIRALAX 3350 PO PRN (16:26)
[2017-11-09] MEDS ORDERED: PERCOCET 5/325 PO PRN (16:29)
--- NOTE | 2017-11-09 16:31 | Progress Note ---
Assessment and Plan Assessment and plan: 62-year-old male with history of hypertension, CVA, peripheral vascular disease has ongoing right foot pain over the last 8 months. He described the pain as sharp, intermittent, less than 5 minutes, intensity score 10, no radiation, worse with activity, better with rest. He was seen by Dr. Busby who told him to come to the emergency room for admission for surgery Peripheral vascular disease - BLE ARTERIAL DUPLEX/ LUKE'S COMPLETED. VAS LAB PRELIMINARY REPORT; RESTING LUKE' S: RT= 0.65, LT= 0.65. - Dr Busby did vascular procedure and patient's pain is getting better - PT consult Abdominal pain - RLQ pain - CT abdomen and pelvis: normal - Doppler U/S no aneurysm, no abnormality identified Hypertension - continue home BP medications History of CVA - Continue statin therapy DVT prophylaxis - Lovenox Possible DC tomorrow. History Interval history: Patient was seen and evaluated this morning, patient was complaining right groin pain. Hospitalist Physical - Physical exam Narrative exam: Not in cardiopulmonary distress. The patient appeared well nourished and normally developed. Vital signs as documented. Head exam is unremarkable. No scleral icterus . Neck is without jugular venous distension, thyromegaly, or carotid bruits. Lungs are clear to auscultation. Cardiac exam reveals regular rate and Rhythm. Abdominal exam reveals right groin tenderness. Extremities are nonedematous, tenderness on the right foot, worse on the second toes. 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 - Constitutional Vitals: Temp Pulse Resp BP Pulse Ox 98.8 F 71 20 140/99 98 11/09/17 15:30 11/09/17 15:57 11/09/17 15:30 11/09/17 15:57 11/09/17 15:30 General appearance: Present: no acute distress Results - Labs CBC & Chem 7: 11/09/17 12:33 11/09/17 07:19 Labs: Laboratory Last Values WBC 7.4 K/mm3 (4.5-11.0) 11/09/17 12:33 RBC 4.23 M/mm3 (3.65-5.03) 11/09/17 12:33 Hgb 13.3 gm/dl (11.8-15.2) 11/09/17 12:33 Hct 38.2 % (35.5-45.6) 11/09/17 12:33 MCV 90 fl (84-94) 11/09/17 12:33 MCH 31 pg (28-32) 11/09/17 12:33 MCHC 35 % (32-34) H 11/09/17 12:33 RDW 13.6 % (13.2-15.2) 11/09/17 12:33 Plt Count 181 K/mm3 (140-440) 11/09/17 12:33 Lymph % (Auto) 48.4 % (13.4-35.0) H 11/04/17 05:32 [place] % (Auto) 5.1 % (0.0-7.3) 11/04/17 05:32 Eos % (Auto) 2.6 % (0.0-4.3) 11/04/17 05:32 Baso % (Auto) 1.3 % (0.0-1.8) 11/04/17 05:32 Lymph # 4.5 K/mm3 (1.2-5.4) 11/04/17 05:32 [place] # 0.5 K/mm3 (0.0-0.8) 11/04/17 05:32 Eos # 0.2 K/mm3 (0.0-0.4) 11/04/17 05:32 Baso # 0.1 K/mm3 (0.0-0.1) 11/04/17 05:32 Seg Neutrophils % 42.6 % (40.0-70.0) 11/04/17 05:32 Seg Neutrophils # 4.0 K/mm3 (1.8-7.7) 11/04/17 05:32 PT 13.7 Sec. (12.2-14.9) 11/05/17 06:18 INR 1.00 (0.87-1.13) 11/05/17 06:18 APTT 32.4 Sec. (24.2-36.6) 11/05/17 06:18 Sodium 136 mmol/L (137-145) L 11/09/17 07:19 Potassium 3.7 mmol/L (3.6-5.0) 11/09/17 07:19 Chloride 94.7 mmol/L (98-107) L 11/09/17 07:19 Carbon Dioxide 29 mmol/L (22-30) 11/09/17 07:19 Anion Gap 16 mmol/L 11/09/17 07:19 BUN 20 mg/dL (9-20) 11/09/17 07:19 Creatinine 1.2 mg/dL (0.8-1.5) 11/09/17 07:19 Estimated GFR > 60 ml/min 11/09/17 07:19 BUN/Creatinine Ratio 17 % 11/09/17 07:19 Glucose 116 mg/dL (75-100) H 11/09/17 07:19 POC Glucose 110 (70-105) H 11/08/17 16:46 Calcium 9.0 mg/dL (8.4-10.2) 11/09/17 07:19 Total Bilirubin 0.30 mg/dL (0.1-1.2) 11/03/17 22:13 AST 14 units/L (5-40) 11/03/17 22:13 ALT 10 units/L (7-56) 11/03/17 22:13 Alkaline Phosphatase 76 units/L (35-129) 11/03/17 22:13 NT-Pro-B Natriuret Pep 228.8 pg/mL (0-900) 11/03/17 22:13 Total Protein 7.1 g/dL (6.3-8.2) 11/03/17 22:13 Albumin 4.3 g/dL (3.9-5) 11/03/17 22:13 Albumin/Globulin Ratio 1.5 % 11/03/17 22:13
[2017-11-09] MEDS: TYLENOL PO PRN (21:50)
[2017-11-10] MEDS: SODIUM CHLORIDE FLUSH SYRINGE 10 ML IV SCH ×2 (10:05→10:12)
[2017-11-10] MEDS: HABITROL TD SCH (10:12)
[2017-11-10] MEDS: HCTZ PO SCH (10:13)
[2017-11-10] MEDS: APRESOLINE PO SCH ×2 (10:13→15:03)
[2017-11-10] MEDS: LOVENOX SUB-Q SCH (10:14)
[2017-11-10] MEDS: BABY ASPIRIN PO SCH (10:16)
[2017-11-10] MEDS: PLAVIX PO SCH (10:18)
[2017-11-10] MEDS: NORVASC PO SCH (10:18)
--- NOTE | 2017-11-10 11:18 | Discharge Summary ---
Providers - Providers Date of Admission: 11/03/17 23:58 Attending physician: LALO MCDONNELL MD 11/03/17 23:46 Consult to Physician [CONS] Urgent Comment: Consulting Provider: CÉSAR ZAMUDIO Physician Instructions: Reason For Exam: right lower extremity peripheral vascular disease 11/08/17 16:09 Physical Therapy Evaluation and Treat [CONS] Routine Comment: Reason For Exam: post surgical Primary care physician: JEWEL HOLE GAUGER Hospitalization Reason for admission: PVD Condition: Fair Pertinent studies: BLE ARTERIAL DUPLEX/ LUKE'S COMPLETED. VAS LAB PRELIMINARY REPORT; RESTING LUKE'S : RT= 0.65, LT= 0.65. Hospital course: 62-year-old male with history of hypertension, CVA, peripheral vascular disease has ongoing right foot pain over the last 8 months. He described the pain as sharp, intermittent, less than 5 minutes, intensity score 10, no radiation, worse with activity, better with rest. He was seen by Dr. Busby who told him to come to the emergency room for admission for surgery Peripheral vascular disease - BLE ARTERIAL DUPLEX/ LUKE'S COMPLETED. VAS LAB PRELIMINARY REPORT; RESTING LUKE' S: RT= 0.65, LT= 0.65. - Dr Busby did vascular procedure and patient's pain is getting better - PT consult and recommend home PT Abdominal pain - Resolved - CT abdomen and pelvis: normal - Doppler U/S no aneurysm, no abnormality identified Hypertension - continue home BP medications History of CVA - Continue statin therapy Patient discharged home in a stable condition, with home PT. Disposition: [id number] HOME UNDER HOME [facility] Time spent for discharge: 34 minutes - Discharge Diagnoses (1) History of CVA with residual deficit Status: Acute (2) Atherosclerosis of [place] arteries of extremity with rest pain Status: Acute (3) Peripheral vascular disease Status: Acute (4) Right foot pain Status: Acute (5) HTN (hypertension) Status: Chronic Qualifiers: Hypertension type: essential hypertension Qualified Code(s): I10 - Essential (primary) hypertension Comment: Started on Losartan 100 mg po qd Core Measure Documentation - Palliative Care Palliative Care/ Comfort Measures: Not Applicable - Core Measures Any of the following diagnoses?: history only (stroke) Exam - Physical Exam Narrative exam: Not in cardiopulmonary distress. The patient appeared well nourished and normally developed. Vital signs as documented. Head exam is unremarkable. No scleral icterus . Neck is without jugular venous distension, thyromegaly, or carotid bruits. Lungs are clear to auscultation. Cardiac exam reveals regular rate and Rhythm. Abdominal exam reveals right groin tenderness. Extremities are nonedematous, tenderness on the right foot, worse on the second toes. 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 - Constitutional Vitals: Temp Pulse Resp BP Pulse Ox 98.9 F 71 22 164/96 97 11/10/17 07:49 11/10/17 10:18 11/10/17 07:49 11/10/17 10:18 11/10/17 07:49 Plan Activity: advance as tolerated Weight Bearing Status: Weight Bear as Tolerated Diet: low cholesterol, low salt Special Instructions: physical therapy Additional Instructions: Follow up at [facility] in 1-2 weeks Follow up with: PRIMARY CARE, [Primary Care Provider] - 3-5 Days CASPER BUSBY MD [Staff Physician] - 14 Days Prescriptions: Clopidogrel [Plavix] 75 mg PO QDAY #30 tablet Nicotine [Habitrol] 14 mg TD Q24HR #7 patch oxyCODONE /ACETAMINOPHEN [Percocet 5/325 mg] 2 tab PO Q6H PRN #12 tablet PRN Reason: Pain, Moderate (4-6)
[2017-11-10 16:20] VITALS: BP 151/90
== END 2017-11-10 16:26 | disposition home or self-care (01) | DRG 254 ==
LOC: ED 21:14 → 3A 23:58
PROVIDERS: ADMIT Internal Medicine; ATTEND Internal Medicine
PROC: 047R3ZZ Dilation of Right Posterior Tibial Artery, Percutaneous Approach (ICD-10-PCS; principal; 2017-11-07)
PROC: 047P3ZZ Dilation of Right Anterior Tibial Artery, Percutaneous Approach (ICD-10-PCS; 2017-11-07)
PROC: 047M3Z1 Dilation of Right Popliteal Artery using Drug-Coated Balloon, Percutaneous Approach (ICD-10-PCS; 2017-11-07)
PROC: 047 Lower Arteries, Dilation (ICD-10-PCS; 2017-11-07)
PROC: 047C3Z1 Dilation of Right Common Iliac Artery using Drug-Coated Balloon, Percutaneous Approach (ICD-10-PCS; 2017-11-07)
PROC: B41G1ZZ Fluoroscopy of Left Lower Extremity Arteries using Low Osmolar Contrast (ICD-10-PCS; 2017-11-07)
PROC: B41D0ZZ Fluoroscopy of Aorta and Bilateral Lower Extremity Arteries using High Osmolar Contrast (ICD-10-PCS; 2017-11-07)
PROC: B41F1ZZ Fluoroscopy of Right Lower Extremity Arteries using Low Osmolar Contrast (ICD-10-PCS; 2017-11-07)
DX: I70.221 Atherosclerosis of native arteries of extremities with rest pain, right leg (principal); I10 Essential (primary) hypertension; F17.210 Nicotine dependence, cigarettes, uncomplicated; Z82.49 Family history of ischemic heart disease and other diseases of the circulatory system; Z86.73 Personal history of transient ischemic attack (TIA), and cerebral infarction without residual deficits; Z90.49 Acquired absence of other specified parts of digestive tract
CPT/HCPCS: 36415; 37226; 37228; 37232; 74176; 75625; 75635; 75710; 76937; 80048; 80053; 82962; 83880; 85025; 85027; 85610; 85730; 93922; 93925; 94760; 96374; 99285; 99406; A9270-GY; C1725; C1760; C1769; C1876; C1887; C2623; J0360; J0690; J1170; J1644; J1650; J2250; J2270; J2405; J2997; J3010; J7040; Q9967

== ENCOUNTER 2021-05-02 22:10 | Observation (INO) | payer MEDICARE ==
[2021-05-02] MEDS ORDERED: niCARdipine DRIP 40 MG/200 ML BAG IV ONE (22:22)
--- NOTE | 2021-05-02 22:22 | Emergency Department Report ---
ED General Adult HPI - General Chief complaint: Altered Mental Status Stated complaint: HIGH BP/AMS PUI?: No Time Seen by Provider: 05/02/21 22:21 Source: patient, family, EMS ( EMS documentation not available at time of chart dictation . Verbal report received from emergency medical services), RN notes reviewed, old records reviewed Mode of arrival: Stretcher Limitations: Altered Mental Status, Physical Limitation - History of Present Illness Initial comments: The patient is a 65-year-old gentleman. His past medical history includes hypertension, stroke, PAD. The patient is brought to the hospital by EMS and family with a complaint of hypertension and altered mental status. History mostly obtained from the patient's mother. She states that the patient was in his usual state of health, up until approximately 1/2-hour prior to ER arrival. She reports the patient started to regurgitate and/or throw up food, and became generally weak and altered. To the best of her knowledge, no fever, chills, prior diarrhea, she states the patient recently started spironolactone. In the emergency room, the patient is awake and agitated and moving 4 extremities. He required midazolam for de-escalation. To me, he complains of abdominal pain with nausea and vomiting. He denies headache, neck pain, chest pain. He denies focal extremity weakness and numbness. He denies urinary symptoms. -: hour(s) Location: abdomen Radiation: other (Patient does not describe radiation) Quality: other (Does not describe qualitative nature of abdominal pain) Consistency: other (Does not describe consistency) Improves with: medication Worsens with: other (Does not describe exacerbating factor) - Related Data Home Medications Medication Instructions Recorded Confirmed Last Taken Amlodipine Besylate [Norvasc] 10 mg PO DAILY 11/04/17 11/04/17 Unknown Aspirin 325 mg PO QDAY 11/04/17 11/04/17 Unknown AtorvaSTATin [Lipitor] 40 mg PO QHS 11/04/17 11/04/17 Unknown hydrALAZINE [Apresoline TAB] 50 mg PO TID 11/04/17 11/04/17 Unknown hydroCHLOROthiazide [HCTZ] 25 mg PO QDAY 11/04/17 11/04/17 Unknown Previous Rx's Medication Instructions Recorded Last Taken Type Clopidogrel [Plavix] 75 mg PO QDAY #30 tablet 11/10/17 Unknown Rx Nicotine [Habitrol] 14 mg TD Q24HR #7 patch 11/10/17 Unknown Rx oxyCODONE /ACETAMINOPHEN [Percocet 2 tab PO Q6H PRN #12 tablet 11/10/17 Unknown Rx 5/325 mg] Allergies Allergy/AdvReac Type Severity Reaction Status Date / Time No Known Allergies Allergy Verified 05/02/21 22:15 ED Review of Systems ROS: Stated complaint: HIGH BP/AMS Other details as noted in HPI Constitutional: malaise, other (Review of systems as per patient and his mother). denies: fever Respiratory: denies: cough Cardiovascular: denies: chest pain Gastrointestinal: abdominal pain, nausea, vomiting Genitourinary: denies: dysuria Musculoskeletal: denies: back pain Neurological: weakness, confusion ED Past Medical Hx - Past Medical History Hx Hypertension: Yes Hx CVA: Yes (01/2017) Hx Congestive Heart Failure: No Hx Diabetes: No Hx Asthma: No Hx COPD: No Additional medical history: Peripheral vascular disease - Surgical History Hx Cholecystectomy: Yes - Social History Smoking Status: Current Every Day Smoker - Medications Home Medications: Home Medications Medication Instructions Recorded Confirmed Last Taken Type Amlodipine Besylate [Norvasc] 10 mg PO DAILY 11/04/17 11/04/17 Unknown History Aspirin 325 mg PO QDAY 11/04/17 11/04/17 Unknown History AtorvaSTATin [Lipitor] 40 mg PO QHS 11/04/17 11/04/17 Unknown History hydrALAZINE [Apresoline TAB] 50 mg PO TID 11/04/17 11/04/17 Unknown History hydroCHLOROthiazide [HCTZ] 25 mg PO QDAY 11/04/17 11/04/17 Unknown History Clopidogrel [Plavix] 75 mg PO QDAY #30 tablet 11/10/17 Unknown Rx Nicotine [Habitrol] 14 mg TD Q24HR #7 patch 11/10/17 Unknown Rx oxyCODONE /ACETAMINOPHEN [Percocet 2 tab PO Q6H PRN #12 tablet 11/10/17 Unknown Rx 5/325 mg] ED Physical Exam - General Limitations: Altered Mental Status General appearance: anxious, in distress, obese - Head Head exam: Present: atraumatic, normocephalic - Eye Eye exam: Present: normal appearance, PERRL, EOMI - ENT ENT exam: Present: normal exam, normal orophraynx, mucous membranes moist, normal external ear exam - Neck Neck exam: Present: normal inspection, full ROM. Absent: tenderness, meningismus - Respiratory Respiratory exam: Present: normal lung sounds bilaterally. Absent: respiratory distress, wheezes, rales, rhonchi, stridor, decreased breath sounds - Cardiovascular Cardiovascular Exam: Present: normal rhythm, tachycardia, normal heart sounds. Absent: bradycardia, irregular rhythm, systolic murmur, diastolic murmur, rubs, gallop - GI/Abdominal GI/Abdominal exam: Present: soft, tenderness. Absent: distended, guarding, rebound, rigid, pulsatile mass, hernia - Rectal Rectal exam: Present: deferred - Extremities Exam Extremities exam: Present: normal inspection, full ROM, other (2+ pulses noted in the bilateral upper and lower extremities. There is no palpable cord. negative Homans sign. Muscular compartments are soft. The pelvis is stable.). Absent: pedal edema, calf tenderness - Back Exam Back exam: Present: normal inspection. Absent: tenderness, CVA tenderness (R), CVA tenderness (L), paraspinal tenderness, vertebral tenderness - Neurological Exam Neurological exam: Present: altered, reflexes normal (Downgoing plantar reflexes), other (There is no facial droop. 5 out of 5 strength in 4 extremities. Sensation is intact to light touch in 4 extremities.) - Psychiatric Psychiatric exam: Present: anxious - Skin Skin exam: Present: warm, dry, intact, normal color. Absent: rash ED Course Vital Signs 05/02/21 05/02/21 05/02/21 22:13 22:23 22:29 Temperature 98.2 F 98.9 F Pulse Rate 101 H 99 H 93 H Respiratory 18 28 H Rate Blood Pressure 207/114 Blood Pressure 242/147 207/112 [Left] O2 Sat by Pulse 99 98 Oximetry 05/02/21 05/02/21 05/02/21 22:31 22:45 23:31 Temperature Pulse Rate 96 H 74 80 Respiratory 29 H 25 H 23 Rate Blood Pressure 207/114 177/117 164/107 Blood Pressure [Left] O2 Sat by Pulse 98 97 99 Oximetry 05/03/21 05/03/21 05/03/21 00:45 01:01 01:31 Temperature Pulse Rate 75 86 75 Respiratory 23 19 19 Rate Blood Pressure 185/107 195/110 186/112 Blood Pressure [Left] O2 Sat by Pulse 99 100 99 Oximetry 05/03/21 05/03/21 05/03/21 02:01 03:31 04:31 Temperature Pulse Rate 72 68 73 Respiratory 19 18 17 Rate Blood Pressure 184/108 183/98 181/93 Blood Pressure [Left] O2 Sat by Pulse 99 98 99 Oximetry - Reevaluation(s) Reevaluation #1: 05/02/21 23:44 Differential diagnosis, including but not limited to: Hypertensive urgency/emergency, hypertensive encephalopathy, electrolyte derangement, thyroid derangement, pneumonia, urinary tract infection, colitis, diverticulitis, ischemic gut, perforated viscus Assessment and plan: 65-year-old gentleman, who was afebrile, but markedly hypertensive, with a nonfocal motor examination, and initial elevated blood pressure, improved with labetalol, and Versed/midazolam, presenting with hypo tension, altered mental status and abdominal pain. Patient very anxious, and agitated, and required midazolam for symptom control. Has vigorous strength in 4 extremities, downgoing plantar reflexes, and brisk biceps, triceps, quadriceps, and brachioradialis reflexes. His sensation is intact to light touch in 4 extremities. This is not suggestive of an acute ischemic stroke. We will obtain CT scan of the brain, and CT scan of the abdomen pelvis. Urinalysis pending at this time. Laboratory studies otherwise reviewed and appreciated. Likely admit to the medical service for hypertensive urgency. Reassess after CT scan has resulted. 05/02/21 23:45 Blood pressure currently 175 systolic/105 diastolic millimeters of mercury. 05/03/21 00:52 ct head negative cta abd/pelvis negative for acute findings ua pending will admit to Dr Burt Juárez of [facility] with CRISTOPHER Walsh ED Medical Decision Making - Lab Data Result diagrams: 05/02/21 22:46 05/02/21 22:46 Vital Signs 05/02/21 05/02/21 05/02/21 22:13 22:23 22:29 Temperature 98.2 F 98.9 F Pulse Rate 101 H 99 H 93 H Respiratory 18 28 H Rate Blood Pressure 207/114 Blood Pressure 242/147 207/112 [Left] O2 Sat by Pulse 99 98 Oximetry Lab Results 05/02/21 05/02/21 05/02/21 Range/Units 22:21 22:46 22:46 WBC 10.0 (4.5-11.0) K/mm3 RBC 4.39 (3.65-5.03) M/mm3 Hgb 13.6 (11.8-15.2) gm/dl Hct 40.8 (35.5-45.6) % MCV 93 (84-94) fl MCH 31 (28-32) pg MCHC 33 (32-34) % RDW 13.2 (13.2-15.2) % Plt Count 203 (140-440) K/mm3 Lymph % (Auto) 17.7 (13.4-35.0) % Steele % (Auto) 4.5 (0.0-7.3) % Eos % (Auto) 1.4 (0.0-4.3) % Baso % (Auto) 1.1 (0.0-1.8) % Lymph # (Auto) 1.8 (1.2-5.4) K/mm3 Steele # (Auto) 0.4 (0.0-0.8) K/mm3 Eos # (Auto) 0.1 (0.0-0.4) K/mm3 Baso # (Auto) 0.1 (0.0-0.1) K/mm3 Seg Neutrophils % 75.3 H (40.0-70.0) % Seg Neutrophils # 7.5 (1.8-7.7) K/mm3 PT 13.0 (12.2-14.9) Sec. INR 0.88 (0.87-1.13) APTT 29.2 (24.2-36.6) Sec. Sodium (137-145) mmol/L Potassium (3.6-5.0) mmol/L Chloride (98-107) mmol/L Carbon Dioxide (22-30) mmol/L Anion Gap mmol/L BUN (9-20) mg/dL Creatinine (0.8-1.3) mg/dL Estimated GFR ml/min BUN/Creatinine Ratio % Glucose (75-100) mg/dL POC Glucose 115 H (70-105) mg/dL Lactic Acid (0.7-2.0) mmol/L Calcium (8.4-10.2) mg/dL Total Bilirubin (0.1-1.2) mg/dL AST (5-40) units/L ALT (7-56) units/L Alkaline Phosphatase (35-129) units/L Ammonia (25-60) umol/L Total Creatine Kinase (55-170) units/L Troponin T (0.00-0.029) ng/mL Total Protein (6.3-8.2) g/dL Albumin (3.9-5) g/dL Albumin/Globulin Ratio % TSH (0.270-4.200) mlU/mL Salicylates (2.8-20.0) mg/dL Acetaminophen (10.0-30.0) ug/mL Plasma/Serum Alcohol (0-0.07) % Blood Type 05/02/21 05/02/21 05/02/21 Range/Units 22:46 22:46 22:46 WBC (4.5-11.0) K/mm3 RBC (3.65-5.03) M/mm3 Hgb (11.8-15.2) gm/dl Hct (35.5-45.6) % MCV (84-94) fl MCH (28-32) pg MCHC (32-34) % RDW (13.2-15.2) % Plt Count (140-440) K/mm3 Lymph % (Auto) (13.4-35.0) % Steele % (Auto) (0.0-7.3) % Eos % (Auto) (0.0-4.3) % Baso % (Auto) (0.0-1.8) % Lymph # (Auto) (1.2-5.4) K/mm3 Steele # (Auto) (0.0-0.8) K/mm3 Eos # (Auto) (0.0-0.4) K/mm3 Baso # (Auto) (0.0-0.1) K/mm3 Seg Neutrophils % (40.0-70.0) % Seg Neutrophils # (1.8-7.7) K/mm3 PT (12.2-14.9) Sec. INR (0.87-1.13) APTT (24.2-36.6) Sec. Sodium 142 (137-145) mmol/L Potassium 3.6 (3.6-5.0) mmol/L Chloride 106.5 (98-107) mmol/L Carbon Dioxide 22 (22-30) mmol/L Anion Gap 17 mmol/L BUN 25 H (9-20) mg/dL Creatinine 1.4 H (0.8-1.3) mg/dL Estimated GFR > 60 ml/min BUN/Creatinine Ratio 18 % Glucose 120 H (75-100) mg/dL POC Glucose (70-105) mg/dL Lactic Acid 0.80 (0.7-2.0) mmol/L Calcium 9.6 (8.4-10.2) mg/dL Total Bilirubin 0.40 (0.1-1.2) mg/dL AST 14 (5-40) units/L ALT 15 (7-56) units/L Alkaline Phosphatase 83 (35-129) units/L Ammonia 24.0 L (25-60) umol/L Total Creatine Kinase 80 (55-170) units/L Troponin T 0.010 (0.00-0.029) ng/mL Total Protein 7.7 (6.3-8.2) g/dL Albumin 4.2 (3.9-5) g/dL Albumin/Globulin Ratio 1.2 % TSH (0.270-4.200) mlU/mL Salicylates (2.8-20.0) mg/dL Acetaminophen (10.0-30.0) ug/mL Plasma/Serum Alcohol (0-0.07) % Blood Type 05/02/21 05/02/21 05/02/21 Range/Units 22:46 22:46 22:46 WBC (4.5-11.0) K/mm3 RBC (3.65-5.03) M/mm3 Hgb (11.8-15.2) gm/dl Hct (35.5-45.6) % MCV (84-94) fl MCH (28-32) pg MCHC (32-34) % RDW (13.2-15.2) % Plt Count (140-440) K/mm3 Lymph % (Auto) (13.4-35.0) % Steele % (Auto) (0.0-7.3) % Eos % (Auto) (0.0-4.3) % Baso % (Auto) (0.0-1.8) % Lymph # (Auto) (1.2-5.4) K/mm3 Steele # (Auto) (0.0-0.8) K/mm3 Eos # (Auto) (0.0-0.4) K/mm3 Baso # (Auto) (0.0-0.1) K/mm3 Seg Neutrophils % (40.0-70.0) % Seg Neutrophils # (1.8-7.7) K/mm3 PT (12.2-14.9) Sec. INR (0.87-1.13) APTT (24.2-36.6) Sec. Sodium (137-145) mmol/L Potassium (3.6-5.0) mmol/L Chloride (98-107) mmol/L Carbon Dioxide (22-30) mmol/L Anion Gap mmol/L BUN (9-20) mg/dL Creatinine (0.8-1.3) mg/dL Estimated GFR ml/min BUN/Creatinine Ratio % Glucose (75-100) mg/dL POC Glucose (70-105) mg/dL Lactic Acid (0.7-2.0) mmol/L Calcium (8.4-10.2) mg/dL Total Bilirubin (0.1-1.2) mg/dL AST (5-40) units/L ALT (7-56) units/L Alkaline Phosphatase (35-129) units/L Ammonia (25-60) umol/L Total Creatine Kinase (55-170) units/L Troponin T (0.00-0.029) ng/mL Total Protein (6.3-8.2) g/dL Albumin (3.9-5) g/dL Albumin/Globulin Ratio % TSH 0.513 (0.270-4.200) mlU/mL Salicylates < 0.3 L (2.8-20.0) mg/dL Acetaminophen 5.0 L (10.0-30.0) ug/mL Plasma/Serum Alcohol (0-0.07) % Blood Type 05/02/21 05/02/21 Range/Units 22:46 22:46 WBC (4.5-11.0) K/mm3 RBC (3.65-5.03) M/mm3 Hgb (11.8-15.2) gm/dl Hct (35.5-45.6) % MCV (84-94) fl MCH (28-32) pg MCHC (32-34) % RDW (13.2-15.2) % Plt Count (140-440) K/mm3 Lymph % (Auto) (13.4-35.0) % Steele % (Auto) (0.0-7.3) % Eos % (Auto) (0.0-4.3) % Baso % (Auto) (0.0-1.8) % Lymph # (Auto) (1.2-5.4) K/mm3 Steele # (Auto) (0.0-0.8) K/mm3 Eos # (Auto) (0.0-0.4) K/mm3 Baso # (Auto) (0.0-0.1) K/mm3 Seg Neutrophils % (40.0-70.0) % Seg Neutrophils # (1.8-7.7) K/mm3 PT (12.2-14.9) Sec. INR (0.87-1.13) APTT (24.2-36.6) Sec. Sodium (137-145) mmol/L Potassium (3.6-5.0) mmol/L Chloride (98-107) mmol/L Carbon Dioxide (22-30) mmol/L Anion Gap mmol/L BUN (9-20) mg/dL Creatinine (0.8-1.3) mg/dL Estimated GFR ml/min BUN/Creatinine Ratio % Glucose (75-100) mg/dL POC Glucose (70-105) mg/dL Lactic Acid (0.7-2.0) mmol/L Calcium (8.4-10.2) mg/dL Total Bilirubin (0.1-1.2) mg/dL AST (5-40) units/L ALT (7-56) units/L Alkaline Phosphatase (35-129) units/L Ammonia (25-60) umol/L Total Creatine Kinase (55-170) units/L Troponin T (0.00-0.029) ng/mL Total Protein (6.3-8.2) g/dL Albumin (3.9-5) g/dL Albumin/Globulin Ratio % TSH (0.270-4.200) mlU/mL Salicylates (2.8-20.0) mg/dL Acetaminophen (10.0-30.0) ug/mL Plasma/Serum Alcohol < 0.01 (0-0.07) % Blood Type A POSITIVE - EKG Data -: EKG Interpreted by Ca EKG shows normal: sinus rhythm Rate: normal - EKG Data 05/02/21 23:40 The EKG is interpreted at 23: 07 Sinus rhythm, rate 72 bpm. Normal axis, normal P wave axis, normal intervals, left ventricular hypertrophy, nonspecific T wave abnormalities, likely related to LVH. This is an abnormal EKG. This is not a STEMI. When compared to prior EKG from 2016, appears grossly unchanged. - Radiology Data Radiology results: pending, report reviewed, image reviewed CHEST 1 VIEW 05/02/2021 10:23 PM INDICATION / CLINICAL INFORMATION: Altered Mental Status. COMPARISON: None available. FINDINGS: SUPPORT DEVICES: None. HEART / MEDIASTINUM: The heart size and pulmonary vasculature are normal. There is mild aortic tortuosity without aneurysm. LUNGS / PLEURA: No significant pulmonary or pleural abnormality. No pneumothorax. ADDITIONAL FINDINGS: No significant additional findings. IMPRESSION: No acute findings. Signer Name: Yamil Patel MD Signed: 05/02/2021 10:09 PM Workstation Name: [id number] Noncontrast CT scan of the brain is negative for acute findings. CT HEAD WITHOUT CONTRAST INDICATION / CLINICAL INFORMATION: Altered Mental Sta tus. TECHNIQUE: All CT scans at this location are performed using CT dose reduction for ALARA by means of automated exposure control. COMPARISON: 01/25/16. FINDINGS: There is mild to moderate motion artifact. HEMORRHAGE: None. EXTRA-AXIAL SPACES: Mildly prominent likely related to cortical atrophy. VENTRICULAR SYSTEM: Normal in size and morphology for the patient's age. CEREBRAL PARENCHYMA: No significant abnormality. No acute territorial infarct. MIDLINE SHIFT / HERNIATION: None. CEREBELLUM / BRAINSTEM: There is mild generalized cerebellar atrophy. No acute abnormality. ORBITS: Normal as visualized. SOFT TISSUES: No significant abnormality. SKULL: No significant abnormality. PARANASAL SINUSES / MASTOID AIR CELLS: Normal as visualized. ADDITIONAL FINDINGS: None. IMPRESSION: Limited examination due to motion artifact. No acute abnormality is identified. Signer Name: Yamil Patel MD Signed: 05/02/2021 11:26 PM Workstation Name: [id number] CT ANGIOGRAPHY OF THE ABDOMEN AND PELVIS WITH INTRAVENOUS CONTRAST INDICATION / CLINICAL INFORMATION: Acute abdominal pain and hx of PAD. ER provider requested delay venous phase imaging. TECHNIQUE: Axial CT images were obtained after inj ection of 100 cc Omnipaque 350 IV contrast using CTA protocol. 3 plane MIP / 3D reconstructions were produced. All CT scans at this location are performed using CT dose reduction for ALARA by means of automated exposure control. COMPARISON: None available. FINDINGS: ABDOMEN: There are mild atherosclerotic calcifications involving the abdominal aorta and its branches without aneurysm or dissection. No significant abnormality of the celiac axis, SMA, single renal arteries bilaterally or TAMEKA is seen. There is no evidence of significant stenosis or thrombosis. Delayed images demonstrate no venous abnormality. The liver, spleen, gallbladder, bile ducts, pancreas and adrenal glands are normal. There is a subcentimeter simple cyst in the upper pole of the right kidney. There is a 2 mm calculus in the right mid kidney and there are three1 to 2 mm calculi scattered throughout the left kidney. There is no evidence of ureteral calculus or hydronephrosis. There is no evidence of bowel obstruction, wall thickening or free air. No adenopathy is seen. The lung bases are clear. PELVIS: There are mild atherosclerotic calcifications involving the iliac arteries bilaterally without aneurysm, dissection or thrombosis. The distal ureters and urinary bladder are normal. The prostate gland is slightly enlarged. The seminal vesicles are unremarkable. The appendix has probably been removed. There is no evidence of diverticulitis. No abnormal mass or fluid collection is seen. I do not identify a hernia. There is minimal spondylosis. IMPRESSION: 1. No acute intra-abdominal disease is identified. 2. Mild bilateral nonobstructive nephrolithiasis. Signer Name: Yamil Patel MD Signed: 05/02/2021 11:42 PM Workstation Name: [id number] Critical Care Time: Yes Critical care time in (mins) excluding proc time.: 35 Critical care attestation.: If time is entered above; I have spent that time in minutes in the direct care o f this critically ill patient, excluding procedure time. ED Disposition Clinical Impression: Acute abdominal pain, Hypertensive urgency Disposition: ADMITTED INPATIENT Is pt being admited?: Yes Does the pt Need Aspirin: Yes Condition: Good
[2021-05-02] MEDS ORDERED: MIDAZOLAM 2 MG/2 ML INJ IV ONE (22:24)
[2021-05-02] MEDS ORDERED: SODIUM CHLORIDE 0.9% 500 ML 500 ML IV ONE (22:35)
--- NOTE | 2021-05-02 23:13 | XRay Report ---
CHEST 1 VIEW 05/02/2021 10:23 PM INDICATION / CLINICAL INFORMATION: Altered Mental Status. COMPARISON: None available. FINDINGS: SUPPORT DEVICES: None. HEART / MEDIASTINUM: The heart size and pulmonary vasculature are normal. There is mild aortic tortuo sity without aneurysm. LUNGS / PLEURA: No significant pulmonary or pleural abnormality. No pneumothorax. ADDITIONAL FINDINGS: No significant additional findings. IMPRESSION: No acute findings. Signer Name: Yamil Patel MD Signed: 05/02/2021 11:09 PM Workstation Name: [id number]
[2021-05-02 23:18] LABS: Basophils # (Auto) 0.1 K/mm3 (0.0-0.1); Basophils % (Auto) 1.1 % (0.0-1.8); Eosinophils # (Auto) 0.1 K/mm3 (0.0-0.4); Eosinophils % (Auto) 1.4 % (0.0-4.3); Hematocrit 40.8 % (35.5-45.6); Hemoglobin 13.6 gm/dl (11.8-15.2); Lymphocytes # (Auto) 1.8 K/mm3 (1.2-5.4); Lymphocytes % (Auto) 17.7 % (13.4-35.0); Mean Corpuscular HGB Conc 33 % (32-34); Mean Corpuscular Volume 93 fl (84-94); Monocytes # (Auto) 0.4 K/mm3 (0.0-0.8); Monocytes % (Auto) 4.5 % (0.0-7.3); Platelet Count 203 K/mm3 (140-440); Red Blood Count 4.39 M/mm3 (3.65-5.03); Red Cell Distribution Width 13.2 % (13.2-15.2)
[2021-05-02 23:28] LABS: INR 0.88 (0.87-1.13)
[2021-05-02 23:29] LABS: Partial Thromboplastin Time 29.2 Sec. (24.2-36.6)
[2021-05-02 23:30] LABS: Alanine Aminotransferase 15 units/L (7-56); Albumin 4.2 g/dL (3.9-5); BUN/Creatinine Ratio 18; Blood Urea Nitrogen 25 mg/dL (9-20); Calcium 9.6 mg/dL (8.4-10.2); Hemolysis Index 3
--- NOTE | 2021-05-03 00:31 | Cat Scan Report ---
CT HEAD WITHOUT CONTRAST INDICATION / CLINICAL INFORMATION: Altered Mental Status. TECHNIQUE: All CT scans at this location are performed using CT dose reduction for ALARA by means of automated exposure control. COMPARISON: 01/25/16. FINDINGS: There is mild to moderate motion artifact. HEMORRHAGE: None. EXTRA-AXIAL SPACES: Mildly prominent likely related to cortical atrophy. VENTRICULAR SYSTEM: Normal in size and morphology for the patient's age. CEREBRAL PARENCHYMA: No significant abnormality. No acute territorial infarct. MIDLINE SHIFT / HERNIATION: None. CEREBELLUM / BRAINSTEM: There is mild generalized cerebellar atrophy. No acute abnormality. ORBITS: Normal as visualized. SOFT TISSUES: No significant abnormality. SKULL: No significant abnormality. PARANASAL SINUSES / MASTOID AIR CELLS: Normal as visualized. ADDITIONAL FINDINGS: None. IMPRESSION: Limited examination due to motion artifact. No acute abnormality is identified. Signer Name: Yamil Patel MD Signed: 05/03/2021 12:26 AM Workstation Name: [id number]
--- NOTE | 2021-05-03 00:46 | Cat Scan Report ---
CT ANGIOGRAPHY OF THE ABDOMEN AND PELVIS WITH INTRAVENOUS CONTRAST INDICATION / CLINICAL INFORMATION: Acute abdominal pain and hx of PAD. ER provider requested delay ve nous phase imaging. TECHNIQUE: Axial CT images were obtained after injection of 100 cc Omnipaque [address] A protocol. 3 plane MIP / 3D reconstructions were produced. All CT scans at this location are perform ed using CT dose reduction for ALARA by means of automated exposure control. COMPARISON: None available. FINDINGS: ABDOMEN: There are mild atherosclerotic calcifications involving the abdominal aorta and its branches without aneurysm or dissection. No significant abnormality of the celiac axis, SMA, single renal art eries bilaterally or TAMEKA is seen. There is no evidence of significant stenosis or thrombosis. Delayed images demonstrate no venous abnormality. The liver, spleen, gallbladder, bile ducts, pancreas and adrenal glands are normal. There is a subcen timeter simple cyst in the upper pole of the right kidney. There is a 2 mm calculus in the right mid kidney and there are three1 to 2 mm calculi scattered throughout the left kidney. There is no evidenc e of ureteral calculus or hydronephrosis. There is no evidence of bowel obstruction, wall thickening or free air. No adenopathy is seen. The lung bases are clear. PELVIS: There are mild atherosclerotic calcifications involving the iliac arteries bilaterally withou t aneurysm, dissection or thrombosis. The distal ureters and urinary bladder are normal. The prostate gland is slightly enlarged. The semin al vesicles are unremarkable. The appendix has probably been removed. There is no evidence of diverti culitis. No abnormal mass or fluid collection is seen. I do not identify a hernia. There is minimal s pondylosis. IMPRESSION: 1. No acute intra-abdominal disease is identified. 2. Mild bilateral nonobstructive nephrolithiasis. Signer Name: Yamil Patel MD Signed: 05/03/2021 12:42 AM Workstation Name: [id number]
[2021-05-03] MEDS ORDERED: ASPIRIN 81 MG TAB CHEW PO ONE (00:54)
[2021-05-03 00:55] LABS: Bilirubin,Urine NEG (Negative); Blood,Urine NEG (Negative); Color,Urine Yellow (Yellow); Mucus,Urine 1+ /HPF
--- NOTE | 2021-05-03 01:22 | History and Physical Report ---
History of Present Illness Date of examination: 05/03/21 Date of admission: 05/03/21 Chief complaint: AMS History of present illness: The patient is brought to the hospital by EMS and family with a complaint of hypertension and altered mental status. History mostly obtained from the patient's mother. She states that the patient was in his usual state of health, up until approximately 1/2-hour prior to ER arrival. She reports the patient started to regurgitate and/or throw up food, and became generally weak and altered. To the best of her knowledge, no fever, chills, prior diarrhea, she states the patient recently started spironolactone. Past History Past Medical History: hypertension, hyperlipidemia Past Surgical History: No surgical history Family history: no significant family history (Patient has AMS-unable to assess) Medications and Allergies Allergies Allergy/AdvReac Type Severity Reaction Status Date / Time No Known Allergies Allergy Verified 05/02/21 22:15 Home Medications Medication Instructions Recorded Confirmed Last Taken Type Amlodipine Besylate [Norvasc] 10 mg PO DAILY 11/04/17 11/04/17 Unknown History Aspirin 325 mg PO QDAY 11/04/17 11/04/17 Unknown History AtorvaSTATin [Lipitor] 40 mg PO QHS 11/04/17 11/04/17 Unknown History hydrALAZINE [Apresoline TAB] 50 mg PO TID 11/04/17 11/04/17 Unknown History hydroCHLOROthiazide [HCTZ] 25 mg PO QDAY 11/04/17 11/04/17 Unknown History Clopidogrel [Plavix] 75 mg PO QDAY #30 tablet 11/10/17 Unknown Rx Nicotine [Habitrol] 14 mg TD Q24HR #7 patch 11/10/17 Unknown Rx oxyCODONE /ACETAMINOPHEN [Percocet 2 tab PO Q6H PRN #12 tablet 11/10/17 Unknown Rx 5/325 mg] Review of Systems Constitutional: fatigue, weakness Ears, nose, mouth and throat: no epistaxis, no bleeding gums Cardiovascular: high blood pressure Respiratory: no congestion, no wheezing Gastrointestinal: no melena, no hematochezia Integumentary: no rash, no pruritis, no redness, no sores Psychiatric: disorientation, confusion Hematologic/Lymphatic: no easy bruising, no easy bleeding, no lymphadenopathy, no lymphedema Allergic/Immunologic: no urticaria Exam - Constitutional Vitals: Temp Pulse Resp BP Pulse Ox 98.9 F 75 23 185/107 99 05/02/21 22:23 05/03/21 00:45 05/03/21 00:45 05/03/21 00:45 05/03/21 00:45 General appearance: Present: mild distress, obese - EENT Eyes: Present: PERRL ENT: hearing intact, clear oral mucosa - Neck Neck: Present: supple, normal ROM - Respiratory Respiratory effort: normal Respiratory: bilateral: CTA - Cardiovascular Heart Sounds: Present: S1 & S2. Absent: rub, click - Extremities Extremities: pulses symmetrical, No edema Peripheral Pulses: within normal limits - Abdominal General gastrointestinal: Present: soft, non-tender, non-distended, normal bowel sounds Male genitourinary: Present: normal - Integumentary Integumentary: Present: clear, warm, dry - Musculoskeletal Musculoskeletal: gait normal, strength equal bilaterally - Psychiatric Psychiatric: other (AMS and confused) - Neurologic Neurologic: CNII-XII intact, moves all extremities - Allied Health Allied health notes reviewed: nursing, PT HEART Score - HEART Score Troponin: Troponin T 0.010 ng/mL (0.00-0.029) 05/02/21 22:46 Results - Labs CBC & Chem 7: 05/02/21 22:46 05/02/21 22:46 Labs: Abnormal lab results 05/02/21 05/02/21 05/02/21 Range/Units 22:21 22:46 22:46 Seg Neutrophils % 75.3 H (40.0-70.0) % BUN 25 H (9-20) mg/dL Creatinine 1.4 H (0.8-1.3) mg/dL Glucose 120 H (75-100) mg/dL POC Glucose 115 H (70-105) mg/dL Ammonia (25-60) umol/L Ur Specific [place] (1.003-1.030) Salicylates (2.8-20.0) mg/dL Acetaminophen (10.0-30.0) ug/mL 05/02/21 05/02/21 05/02/21 Range/Units 22:46 22:46 22:46 Seg Neutrophils % (40.0-70.0) % BUN (9-20) mg/dL Creatinine (0.8-1.3) mg/dL Glucose (75-100) mg/dL POC Glucose (70-105) mg/dL Ammonia 24.0 L (25-60) umol/L Ur Specific [place] (1.003-1.030) Salicylates < 0.3 L (2.8-20.0) mg/dL Acetaminophen 5.0 L (10.0-30.0) ug/mL 05/03/21 Range/Units 00:21 Seg Neutrophils % (40.0-70.0) % BUN (9-20) mg/dL Creatinine (0.8-1.3) mg/dL Glucose (75-100) mg/dL POC Glucose (70-105) mg/dL Ammonia (25-60) umol/L Ur Specific [place] 1.048 H (1.003-1.030) Salicylates (2.8-20.0) mg/dL Acetaminophen (10.0-30.0) ug/mL Assessment and Plan - Patient Problems (1) Hypertensive urgency Current Visit: No Status: Acute Plan to address problem: Monitor blood pressure Resume home anti-hypertensive PRN hydralazine (2) Acute encephalopathy Current Visit: No Status: Acute Plan to address problem: ? cause Safety and fall precaution at all time [place] patient to place and time CT of the head showed no acute finding (3) History of CVA with residual deficit Current Visit: No Status: Acute Plan to address problem: Supportive care PT/OT consult Continue antiplatelet ASA (4) Abdominal pain Current Visit: No Status: Acute Plan to address problem: CT of the abdomen-no acute finding-showed bilateral non-obst. nephrolithiasis PRN pain medicine (5) Acute kidney injury Current Visit: No Status: Acute Plan to address problem: Monitor Kidney function Gentle IV hydration Avoid nephrotoxic drugs (6) DVT prophylaxis Current Visit: Yes Status: Acute Plan to address problem: Lovenox
[2021-05-03] MEDS ORDERED: oxyCODONE /ACETAMINOPHEN 5-325MG TAB PO PRN (01:24)
[2021-05-03] MEDS ORDERED: MORPHINE 2 MG/1 ML INJ IV PRN (01:24)
[2021-05-03] MEDS ORDERED: SENNOSIDES 8.6 MG TAB PO PRN (01:24)
[2021-05-03] MEDS ORDERED: ALUM-MAG HYDROXIDE-SIMETHICONE 200-200-20MG/5ML ORAL LIQD 30 ML PO PRN (01:24)
[2021-05-03] MEDS ORDERED: MAGNESIUM HYDROXIDE (MOM) ORAL LIQD UDC PO PRN (01:24)
[2021-05-03] MEDS ORDERED: ACETAMINOPHEN 325 MG TAB PO PRN (01:24)
[2021-05-03] MEDS ORDERED: ONDANSETRON 4 MG/2 ML INJ IV PRN (01:24)
[2021-05-03] MEDS ORDERED: NALOXONE 0.4 MG/1 ML INJ IV PRN (01:24)
[2021-05-03] MEDS ORDERED: MORPHINE 4 MG/1 ML INJ IV PRN (01:24)
[2021-05-03] MEDS: SODIUM CHLORIDE 0.9% 1000 ML 1,000 ML IV SCH (04:58)
[2021-05-03] MEDS: hydrALAZINE 20 MG/1 ML INJ IV PRN (05:34)
[2021-05-03] MEDS ORDERED: hydrALAZINE 20 MG/1 ML INJ IV PRN (06:49)
[2021-05-03] MEDS: hydrALAZINE 25 MG TAB PO SCH ×3 (09:09→21:49)
[2021-05-03] MEDS: amLODIPine 10 MG TAB PO SCH (09:09)
[2021-05-03] MEDS: NICOTINE 14 MG/24 HR PATCH TD SCH (09:14)
[2021-05-03] MEDS: CLOPIDOGREL 75 MG TAB PO SCH (09:14)
[2021-05-03] MEDS: ENOXAPARIN 40 MG/0.4 ML INJ SUB-Q SCH (09:14)
[2021-05-03] MEDS: FAMOTIDINE 20 MG/2 ML INJ IV SCH ×2 (09:15→21:49)
[2021-05-03] MEDS: hydroCHLOROthiazide 25 MG TAB PO SCH (09:15)
--- NOTE | 2021-05-03 11:02 | Event Note ---
Date: 05/03/21 Patient legally blind. Seen at the bedside. Alert and oriented x3. Has no recollection of events leading to admission. No complaints at this time. We will continue with current plan.
[2021-05-04] MEDS: SODIUM CHLORIDE 0.9% 1000 ML 1,000 ML IV SCH (03:22)
[2021-05-04] MEDS: hydrALAZINE 20 MG/1 ML INJ IV PRN (05:02)
[2021-05-04 06:22] VITALS: BP 176/104
--- NOTE | 2021-05-04 07:37 | Discharge Summary ---
Providers - Providers Date of Admission: 05/03/21 01:24 Attending physician: JEFF INIGUEZ MD 05/03/21 06:48 Occupational Therapy Evaluate and Treat [CONS] Stat Comment: Reason For Exam: hx cva Physical Therapy Evaluation and Treat [CONS] Stat Comment: Reason For Exam: hx cva Primary care physician: MARCO ANTONIO SANZ MD Hospitalization Condition: Good Exam - Constitutional Vitals: Temp Pulse Resp BP Pulse Ox 98.5 F 82 18 176/104 96 05/04/21 04:36 05/04/21 06:21 05/04/21 06:23 05/04/21 06:21 05/04/21 06:21 Plan Care Plan Goals: Follow-up with your primary care doctor within 1 week. Please measure and record your blood pressures at least once daily. Bring the log to your next primary care doctor appointment. We have added another blood pressure medication called losartan. You will start taking this every day along with all your other blood pressure medications. Assessment: Patient brought by family with complaints of nausea, abdominal pain. Was found to be in hypertensive urgency. CT head was negative. CT of the abdomen pelvis was unremarkable for acute etiology. All his home blood pressure medications were restarted and losartan was added. Patient remained stable. He was discharged home with family. Follow up with: PRIMARY CAREMD [Primary Care Provider] - 7 Days Prescriptions: AtorvaSTATin [Lipitor] 40 mg PO QHS 30 Days #30 amLODIPine 10 mg PO DAILY 30 Days #30 tablet hydrALAZINE [Apresoline TAB] 50 mg PO TID 30 Days #180 Losartan [Cozaar] 25 mg PO QDAY 30 Days #30 tablet hydroCHLOROthiazide [HCTZ] 25 mg PO QDAY 30 Days #30 Clopidogrel [Plavix] 75 mg PO QDAY #30 tablet
[2021-05-04 07:39] LABS: Hemoglobin 12.7 gm/dl (11.8-15.2); Mean Corpuscular HGB Conc 33 % (32-34); Mean Corpuscular Volume 94 fl (84-94); Platelet Count 203 K/mm3 (140-440); Red Blood Count 4.16 M/mm3 (3.65-5.03); Red Cell Distribution Width 13.2 % (13.2-15.2)
[2021-05-04 08:01] LABS: Alanine Aminotransferase 12 units/L (7-56); Albumin 3.8 g/dL (3.9-5); BUN/Creatinine Ratio 18; Blood Urea Nitrogen 20 mg/dL (9-20); Calcium 9.2 mg/dL (8.4-10.2); Hemolysis Index 4
[2021-05-04] MEDS ORDERED: FAMOTIDINE 20 MG TAB PO SCH (10:00)
[2021-05-04] MEDS ORDERED: LOSARTAN 25 MG TAB PO SCH (10:00)
[2021-05-04] MEDS: amLODIPine 10 MG TAB PO SCH (10:03)
[2021-05-04] MEDS: hydroCHLOROthiazide 25 MG TAB PO SCH (10:03)
[2021-05-04] MEDS: hydrALAZINE 25 MG TAB PO SCH (10:03)
[2021-05-04] MEDS: ENOXAPARIN 40 MG/0.4 ML INJ SUB-Q SCH (10:03)
[2021-05-04] MEDS: CLOPIDOGREL 75 MG TAB PO SCH (10:03)
[2021-05-04] MEDS: NICOTINE 14 MG/24 HR PATCH TD SCH (10:03)
[2021-05-04 12:24] LABS: Total Cells Counted 100
[2021-05-04 12:25] LABS: Platelet Estimate Consistent w Auto
== END 2021-05-04 10:45 | disposition home or self-care (01) ==
LOC: ED 22:10 → 4A 05-03 01:24
PROVIDERS: ADMIT Internal Medicine Geriatric Medicine; ATTEND Student in an Organized Health Care Education/Training Program
DX: I16.0 Hypertensive urgency (principal); G93.40 Encephalopathy, unspecified; N17.9 Acute kidney failure, unspecified; R10.9 Unspecified abdominal pain; I10 Essential (primary) hypertension; H54.8 Legal blindness, as defined in USA; E78.5 Hyperlipidemia, unspecified; F17.210 Nicotine dependence, cigarettes, uncomplicated; Z86.73 Personal history of transient ischemic attack (TIA), and cerebral infarction without residual deficits; Z79.82 Long term (current) use of aspirin
CPT/HCPCS: 36415; 70450; 71045; 74174; 80053; 81001; 82140; 82550; 82962; 84443; 84484; 85025; 85610; 85730; 86850; 86900; 86901; 87040; 93005; 96361; 96372; 96374; 96375; 96376; 99291; G0378; J0360; J1650; J2250; J2270; J2405; J3490; J7030; J7040; Q9967; 80320; 85007; Q0162; G0480